=== PATIENT | female | born 1990 | race Caucasian/White ===

== ENCOUNTER → 2020-08-17 09:16 | Outpatient (BNVA) | payer BC, SELFPAY | PROVIDERS: Family Provider Family Medicine; PCP Family Medicine; Referring Provider Family Medicine; Visit Provider Podiatrist Foot & Ankle Surgery | DX: M79.671 Pain in right foot (principal) | CPT/HCPCS: 73630 ==

== ENCOUNTER → 2021-03-10 14:39 | Outpatient (BNVA) | payer BC, SELFPAY | PROVIDERS: Family Provider Family Medicine; PCP Family Medicine; Visit Provider Nurse Practitioner Women's Health | DX: R63.5 Abnormal weight gain (principal) | CPT/HCPCS: 84439; 84443 ==

== ENCOUNTER 2021-11-24 11:15 | Outpatient (CLI) | payer BC, SELFPAY ==
--- NOTE | 2021-11-24 11:50 | ECG_ITS ---
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 Measurements Intervals [place] Rate: 84 P: 56 SD: 159 QRS: -8 QRSD: 94 T: 35 QT: 384 QTc: 456 Interpretive Statements SINUS RHYTHM POSSIBLE LEFT VENTRICULAR HYPERTROPHY [VOLTAGE CRITERIA PLUS LAE OR QRS WIDENING] NONSPECIFIC T-WAVE ABNORMALITY No previous ECG available for comparison Electronically Signed On 11-24-2021 13:57:16 CDT by Estella Yepez M.D. [id number] f
== END 2021-11-24 11:16 | disposition home or self-care (01) ==
LOC: RT 11:16
PROVIDERS: PCP Family Medicine; Visit Provider Nurse Practitioner Family
DX: Z01.818 Encounter for other preprocedural examination (principal)
CPT/HCPCS: 93005

== ENCOUNTER 2022-02-08 14:21 | Outpatient (CLI) | payer BC, SELFPAY ==
--- NOTE | 2022-02-08 14:15 | USCV_ITS ---
Geraldine Negro Age: 31 Gender: F : 1990 Exam Date: 02/08/2022 14:57 Ordering Phys: Estella Yepez MD ([email or web address]) Technologist: Kurt López [place] [facility] [place] Indication: sugical clearence BP: 138 / 80 HR: 84 Rhythm: Sinus Technical Quality: Adequate MEASUREMENTS (Male / Female) Normal Values 2D ECHO LV Diastolic Diameter PLAX 4.0 cm 4.2 - 5.9 / 3.9 - 5.3 cm LV Systolic Diameter PLAX 2.8 cm IVS Diastolic Thickness 0.7 cm 0.6 - 1.0 / 0.6 - 0.9 cm IVS Systolic Thickness 1.1 cm LVPW Diastolic Thickness 1.0 cm 0.6 - 1.0 / 0.6 - 0.9 cm LVPW Systolic Thickness 1.6 cm LVOT Diameter 2.0 cm LV Ejection Fraction 2D Teich 59.1 % LV Ejection Fraction MOD 2C 68.4 % LV Ejection Fraction 2C AL 70.8 % LA Diameter 3.1 cm LA Width 2.5 cm LA Height 4.2 cm RA Width 3.2 cm RA Height 3.7 cm Aorta at Sinotubular Diameter 2.1 cm IVC Diameter 1.3 cm M-MODE Aortic Annulus Diameter 2.5 cm LA Ao Ratio MM 1.3 MV E Point Septal Separation 0.9 cm DOPPLER AV Peak Velocity 151.7 cm/s LVOT Peak Velocity 102.0 cm/s AV Area Cont Eq vti 1.9 cm squared AV Area Cont Eq pk 2.1 cm squared MV Peak Velocity 104.0 cm/s MV Area PHT 5.5 cm squared Mitral E to A Ratio 1.1 MV E' Velocity 45.0 cm/s Mitral E to MV E' Ratio 4.3 Mitral E to LV E' Lateral Ratio 3.5 Mitral E to LV E' Septal Ratio 5.6 TR Peak Velocity 226.6 cm/s TR Peak Gradient 20.5 mmHg TR Mean Velocity 169.9 cm/s TR Mean Gradient 12.6 mmHg TR Velocity Time Integral 56.0 cm Right Atrial Pressure 3.0 mmHg Pulmonary Artery Systolic Pressu 23.5 mmHg PV Peak Velocity 110.0 cm/s RV Acceleration Time 0.1 s RV Ejection Time 0.3 s RV AcT/ET 0.5 FINDINGS Left Ventricle Normal left ventricular size, systolic function and wall thickness, with no regional wall motion abnormalities. Left ventricular ejection fraction is estimated at 70 %. Normal diastolic function. Right Ventricle Normal right ventricular size and systolic function. Right ventricular systolic pressure 21 mmHg. Right Atrium Normal right atrial size. Left Atrium Normal left atrial size. Mitral Valve Structurally normal mitral valve. No mitral valve stenosis. Trace mitral valve regurgitation. Aortic Valve Probably trileaflet aortic valve. No aortic valve stenosis. No aortic valve regurgitation. Tricuspid Valve Structurally normal tricuspid valve. Mild tricuspid valve regurgitation. Pulmonic Valve Pulmonic valve not well visualized. No pulmonary valve stenosis. No significant pulmonary valve regurgitation. Pericardium No pericardial effusion. Aorta Normal size aortic root and proximal ascending aorta. IVC Normal IVC dimension with >50% respiratory change of the inferior vena cava. CONCLUSIONS 1. Normal left ventricular size, systolic function and wall thickness, with no regional wall motion abnormalities. Left ventricular ejection fraction is estimated at 70 %. Normal diastolic function. 2. Normal right ventricular size and systolic function. 3. Mild tricuspid valve regurgitation. 4. Normal pulmonary artery pressure. 5. No prior similar studies to compare. Estella Yepez MD (Electronically Signed) Final Date: 12 February 2022 16:22 S
== END 2022-02-08 14:22 | disposition home or self-care (01) ==
PROVIDERS: PCP Nurse Practitioner Family; Visit Provider Internal Medicine Cardiovascular Disease
DX: Z01.810 Encounter for preprocedural cardiovascular examination (principal); I10 Essential (primary) hypertension; R94.31 Abnormal electrocardiogram [ECG] [EKG]
CPT/HCPCS: 93306

== ENCOUNTER 2023-05-15 12:29 | Emergency (ER) | payer BC, SELFPAY ==
[2023-05-15 12:35] VITALS: BP 117/82; PULSE 93; RESP 16; TEMP 36.7; O2SAT 100; BMI 22.3
--- NOTE | 2023-05-15 13:01 | CT_ITS ---
WS: [id number] CT ABDOMEN PELVIS TECHNIQUE: Contrast-enhanced CT of the abdomen and pelvis with coronal and sagittal reformatted image s. CLINICAL INFORMATION: abd pain COMPARISON: None. DLP: 348.[address] scans at [facility] use at least one of these dose optimization techniques: automated e xposure control; mA and/or kV adjustment per patient size (includes targeted exams where dose is matc hed to clinical indication); or iterative reconstruction. FINDINGS: Lung bases are well aerated. Diffuse fatty infiltration of the liver. Hepatomegaly. Normal gallbladder. Small fat-containing umbilical hernia. Normal spleen. Gastric sleeve procedure. Prior hy sterectomy. Normal pancreatic parenchymal enhancement. Normal portal vein and splenic vein. Normal ca liber abdominal aorta. Celiac and SMA are patent. Urine distended bladder. Appendix difficult to visualize but no evidence of acute appendicitis. Normal renal parenchymal enhan cement. No hydronephrosis. Fluid distended loops of small bowel in the lower abdomen and pelvis. Dens e sigmoid constipation. Suspected posterior projecting hemorrhagic RIGHT ovarian cyst with fluid abou t the RIGHT adnexa. Suspected cyst measures 2.7 x 2.8 cm. No other acute findings. IMPRESSION: 1. Prior hysterectomy. 2. Appendix is not well visualized but no evidence of acute appendicitis. 3. Moderate dense sigmoid constipation with mild fluid distention of the small bowel. 4. Suspected posterior projecting RIGHT ovarian hemorrhagic cyst measuring 2.7 x 2.8 cm. This can be followed up with ultrasound. 5. Small amount of free fluid in the pelvis and about the RIGHT ovary. 6. No hydronephrosis in either kidney. 7. No other suspicious findings.
[2023-05-15 13:02] LABS: Basophils # 0.1 10^3/uL (0.0-0.1); Basophils % 0.8 %; Eosinophils % 0.4 %; Hematocrit 45.8 % (36-47); Lymphocytes # 1.4 10^3/uL (0.8-4.8); Lymphocytes % 17.2 %; Mean Corpuscular HGB Conc 34.9 g/dL (30-55); Mean Corpuscular Hemoglobin 31.4 pg (27-33); Mean Platelet Volume 11.9 fL (7.4-10.4); Monocytes # 0.5 10^3/uL (0.2-0.9); Monocytes % 6.2 %; Neutrophils # 5.93 10^3/uL (1.8-7.7); Neutrophils % 75.1 %; Nucleated Red Blood Cells % 0 %; Platelet Count 195 10^3/cmm (157-399); Red Blood Count 5.09 10^6/uL (3.85-5.65); Red Cell Distribution Width 12.5 % (12.1-15.1); White Blood Count 7.89 10^3/uL (3.29-11.43)
[2023-05-15 13:11] LABS: HCG, Serum Qual Negative (Negative)
[2023-05-15] MEDS: iohexol 350 mg/mL 500 mL Btl (per mL) IV (13:11)
[2023-05-15 13:16] LABS: Alanine Aminotransferase 12 U/L (0-33); Albumin Level 4.9 g/dL (3.5-5.2); Alkaline Phosphatase 77 U/L (35-105); Anion Gap 14.9 (5-19); Aspartate Amino Transferase 16 U/L (0-32); Blood Urea Nitrogen 10 mg/dL (6-20); Calcium 10.1 mg/dL (8.5-10.5); Carbon Dioxide 27 mmol/L (22-29); Chloride 97 mmol/L (98-107); Globulin 3.5 g/dL (1.3-4.6); Glomerular Filtration Rate 115.1 mL/min (90-130); Glucose 97 mg/dL (65-115); Lipase 35 U/L (13-60); Osmolality Calculated 279 mOsm/kg (285-295); Potassium 3.9 mmol/L (3.5-5.1); Sodium 135 mmol/L (136-145); Total Bilirubin 0.8 mg/dL (0.15-1.2); Total Protein 8.4 g/dL (6.6-8.7)
[2023-05-15 13:20] VITALS: RESP 17
[2023-05-15] MEDS: morphine 4 mg/mL SDV 1 mL IVP (13:20)
[2023-05-15] MEDS: ondansetron 2 mg/ML SDV 2 mL 4 MG IVP (13:20)
--- NOTE | 2023-05-15 13:32 | PC.PHAR ---
pt states she takes care of her own medications-pt states she finished the fluconazole 150mg every 3 days for 2 doses filled on 04/29/23 6d/s-
--- NOTE | 2023-05-15 13:42 | ED_ITS ---
HPI - Abdominal Pain 2 General: Chief Complaint: Abdominal Pain Stated Complaint: right lower abd pain Time Seen by Provider: 05/15/23 12:39 Source: patient Mode of arrival: ambulatory Limitations: no limitations History of Present Illness: 32-year-old female who states she has schmid d right lower quadrant pain over the last 2 days states pain is worsening pain rates it a 7 out of 10. States that it is in her right lower quadrant she is resting comfortably here she denies any worsening proving factors no vomiting diarrhea denies any dysuria she has had a hysterectomy. Associated Symptoms: Denies chills, diarrhea, dysuria, fever(s), nausea and vomiting Review of Systems 2 Const: Denies: fever(s), chills, body aches or change in appetite ENMT: Denies: throat pain or dental pain Card: Denies: chest pain Resp: Denies: dyspnea GI: Reports: abdominal pain; Denies: nausea, vomiting or diarrhea : Denies: dysuria Musc: Denies: neck pain or back pain Skin/Breast: Denies: rash Neuro: Denies: headache(s) PFSH ED 2 PFSH: Medical History Obesity Anxiety and depression Hypertension No pertinent past medical history neghx:dm,thyroid,dvt/pe PCP: [facility] History H/O gastric sleeve (~2022) Performed by Dr. Parker in [place] H/O oral surgery dental work at age 3 H/O: hysterectomy (~11/2018) MUSA performed by Dr. Jackson at [facility] on 12/10/2018. Due to fibroids. Family History Mother Hypertension Diabetes Breast cancer, Onset Age: 50 Father Hypertension Hyperlipidemia Grandmother Diabetes maternal Family/Other Ovarian cancer maternal aunt Social History Smoking and tobacco/nicotine status: never used tobacco/nicotine Substance/Drug Use: never Physical Exam 2 Const: COMMON NORMALS: no acute distress, patient oriented x3 and healthy appearing HENMT: COMMON NORMALS: normocephalic and atraumatic HEAD & SCALP: n ormocephalic and atraumatic Eye: COMMON NORMALS: conjunctivae normal CONJUNCTIVA: Yes conjunctivae normal Neck/C-Spine: COMMON NORMALS: full ROM and supple Chest: COMMONS NORMALS: normal inspection of the chest Resp: COMMON NORMALS: normal respiratory effort Cardio: COMMON NORMALS: regular rate, regular rhythm and No murmurs present (Cardio) RATE: regular rate RHYTHM: regular rhythm GI: COMMON NORMALS: Normal to inspection, nondistended, normoactive bowel sounds present, Soft to palpation and no masses PALPATION: Yes Soft to palpation and Yes Tenderness to palpation present (GI) Details: RLQ Extremity: COMMON NORMALS: normal to inspection and full ROM Neuro: COMMON NORMALS: patient oriented x3, moves all extremities and no focal motor deficits Psych: COMMON NORMALS: mental status grossly normal, Normal thought process present and cooperative THOUGHT PROCESS: Normal thought process present Skin: COMMON NORMALS: no rashes or lesions noted and no wounds GENERAL SKIN EXAM: no rashes or lesions noted Course 2 Vital Signs: Vital signs: Vital Signs Temperature 98.0 F 05/15/23 12:35 Pulse Rate 93 05/15/23 12:35 Respiratory Rate 17 05/15/23 13:20 Blood Pressure 117/82 05/15/23 12:35 Pulse Oximetry 100 05/15/23 12:35 Oxygen Delivery Me thod Room Air 05/15/23 12:35 MDM - Abdominal Pain Medical Decision Making Patient presents here with abdominal pain imaging blood work here is all normal patient feels improved she still has some slight pain she has no signs of surgical abdomen we will place her on pain meds along with nausea medicine she is to follow-up with PCP in 3 to 5 days and return if worsening she understands agrees to plan. Medical Records I reviewed the patient's medical records. Lab Data I reviewed the patient's lab results. 05/15/23 12:53 05/15/23 12:53 Labs/Radiology: Laboratory Results WBC 7.89 10^3/uL (3.29-11.43) 05/15/23 12:53 RBC 5.09 10^6/uL (3.85-5.65) 05/15/23 12:53 Hgb 16.00 g/dL (11.27-16.99) 05/15/23 12:53 Hct 45.8 % (36-47) 05/15/23 12:53 MCV 90.0 fl (85-98) 05/15/23 12:53 MCH 31.4 pg (27-33) 05/15/23 12:53 MCHC 34.9 g/dL (30-55) 05/15/23 12:53 RDW 12.5 % (12.1-15.1) 05/15/23 12:53 Plt Count 195 10^3/cmm (157-399) 05/15/23 12:53 MPV 11.9 fL (7.4-10.4) H 05/15/23 12:53 Neut % (Auto) 75.1 % 05/15/23 12:53 Lymph % (Auto) 17.2 % 05/15/23 12:53 [place] % (Auto) 6.2 % 05/15/23 12:53 Eos % (Auto) 0.4 % 05/15/23 12:53 Baso % (Auto) 0.8 % 05/15/23 12:53 Neut # (Auto) 5.93 10^3/uL (1.8-7.7) 05/15/23 12:53 Lymph # (Auto) 1.4 10^3/uL (0.8-4.8) 05/15/23 12:53 [place] # (Auto) 0.5 10^3/uL (0.2-0.9) 05/15/23 12:53 Eos # (Auto) 0.0 10^3/uL (0.0-0.8) 05/15/23 12:53 Baso # (Auto) 0.1 10^3/uL (0.0-0.1) 05/15/23 12:53 Nucleated RBC % (auto) 0 % 05/15/23 12:53 Nucleated RBCs # 0.0 /100WBC 05/15/23 12:53 Sodium 135 mmol/L (136-145) L 05/15/23 12:53 Potassium 3.9 mmol/L (3.5-5.1) 05/15/23 12:53 Chloride 97 mmol/L (98-107) L 05/15/23 12:53 Carbon Dioxide 27 mmol/L (22-29) 05/15/23 12:53 Anion Gap 14.9 (5-19) 05/15/23 12:53 BUN 10 mg/dL (6-20) 05/15/23 12:53 Creatinine 0.6 mg/dL (0.5-0.9) 05/15/23 12:53 GFR Calculation 115.1 mL/min (90-130) 05/15/23 12:53 Glucose 97 mg/dL (65-115) 05/15/23 12:53 Calculated Osmolality 279 mOsm/kg (285-295) L 05/15/23 12:53 Calcium 10.1 mg/dL (8.5-10.5) 05/15/23 12:53 Total Bilirubin 0.8 mg/dL (0.15-1.2) 05/15/23 12:53 AST 16 U/L (0-32) 05/15/23 12:53 ALT 12 U/L (0-33) 05/15/23 12:53 Alkaline Phosphatase 77 U/L (35-105) 05/15/23 12:53 Total Protein 8.4 g/dL (6.6-8.7) 05/15/23 12:53 Albumin 4.9 g/dL (3.5-5.2) 05/15/23 12:53 Globulin 3.5 g/dL (1.3-4.6) 05/15/23 12:53 Lipase 35 U/L (13-60) 05/15/23 12:53 HCG, Qual Negative (Negative) 05/15/23 12:53 Urine Color Yellow (Yellow) 05/15/23 14:03 Urine Appearance Clear (CLEAR) 05/15/23 14:03 Urine pH 9 (5-7) H 05/15/23 14:03 Ur Specific [place] 1.010 (1.005-1.030) 05/15/23 14:03 Urine Protein Neg (Negative) 05/15/23 14:03 Urine Glucose (UA) Norm (Normal) 05/15/23 14:03 Urine Ketones Negative (Negative) 05/15/23 14:03 Urine Blood Neg (Negative) 05/15/23 14:03 Urine Nitrate Negative (Negative) 05/15/23 14:03 Urine Bilirubin Neg (Negative) 05/15/23 14:03 Prot Sulfosalicylic Acd Negative (Negative) 05/15/23 14:03 Urine Urobilinogen Neg mg/dL (Negative) 05/15/23 14:03 Ur Leukocyte Esterase Negative (Negative) 05/15/23 14:03 All radiology interpretation(s) finalized by discharge Discharge Plan Discharge Patient Disposition: Home Clinical Impression: Abdominal pain Qualifiers: Abdominal location: generalized Qualified Code(s): R10.84 - Generalized abdominal pain Condition: Stable Prescriptions: New hydrocodone-acetaminophen 5-325 mg tablet 1 tab PO Q6H PRN (Reason: pain) Qty: 14 0RF ondansetron 4 mg tablet,disintegrating 4 mg PO Q6H PRN (Reason: nausea and vomiting) Qty: 14 0RF No Action hydrochlorothiazide 25 mg tablet 25 mg PO QAM lisinopril 10 mg tablet 10 mg PO QAM escitalopram oxalate [Lexapro] 10 mg tablet 10 mg PO BEDTIME dextroamphetamine-amphetamine 7.5 mg tablet 7.5 mg PO BID bupropion HCl 150 mg tablet sustained-release 12 hr 150 mg PO QAM biotin 800 mcg Tablet 800 mcg PO DAILY pantoprazole 40 mg tablet,delayed release (DR/EC) 40 mg PO DAILY PRN (Reason: Heartburn) Bariatric Multivitamins 45 mg iron- 800 mcg-120 mcg Capsule 1 cap PO DAILY progesterone micronized 200 mg capsule 200 mg PO BEDTIME estradiol 0.5 mg tablet 0.5 mg PO QAM Discharge Orders: Discharge ED (Routine); Ordered 05/15/23 Ordered By: Elvis Wright Referrals: Karishma Rodarte FNP [Primary Care Provider] - 1-3 days Discharge Diet: Advance as tolerated Discharge Activity: Resume usual activity Patient Instructions: Abdominal Pain (ED), Opioid Safety Coding Level of Care Code ED Machine Driller for Amy Velasquez
[2023-05-15 14:00] VITALS: BP 120/80; PULSE 77; O2SAT 100
[2023-05-15 14:09] LABS: Add Urine Microscopic? NO; Charge for UA Resulting for Rev
[2023-05-15 14:16] LABS: Bilirubin Urine Neg (Negative); Blood Urine Neg (Negative); Glucose Urine UA Norm (Normal); Ketones Urine Negative (Negative); Leukocyte Esterase Urine Negative (Negative); Nitrate Urine Negative (Negative); Protein Urine Neg (Negative); Sulfosalicylic Acid Urine Negative (Negative); Urine Appearance Clear (CLEAR); Urine Color Yellow (Yellow); Urobilinogen Urine Neg (Negative); pH Urine 9 (5-7)
[2023-05-15 15:00] VITALS: BP 118/78; PULSE 78; O2SAT 99
== END 2023-05-15 15:30 | disposition home or self-care (01) ==
PROVIDERS: Emergency Provider Emergency Medicine; PCP Nurse Practitioner Family
DX: R10.84 Generalized abdominal pain (principal); I10 Essential (primary) hypertension
CPT/HCPCS: 74177; 80053; 81003; 83690; 84703; 85025; 96374; 96375; 99285; J2270; J2405; Q9967

== ENCOUNTER → 2023-06-24 12:36 | Outpatient (BNVA) | payer BC, SELFPAY | PROVIDERS: PCP Nurse Practitioner Family; Visit Provider Nurse Practitioner Women's Health | DX: N83.201 Unspecified ovarian cyst, right side (principal) | CPT/HCPCS: 76830 ==

== ENCOUNTER 2025-01-25 21:23 | Emergency (ER) | payer BC, SELFPAY ==
[2025-01-25 21:27] VITALS: BP 132/83; PULSE 80; RESP 14; TEMP 36.8; O2SAT 99
--- OUTSIDE RECORDS SUMMARY | 2025-01-25 21:31 | XMS_ITS | Data Portability ---
Author Organization [place] [facility], [facility] Address [address] [address] Care Team Providers Care Bowling Alley Attendant Name Role Phone KARISHMA ALCANTARA Primary Care Provider Unavailabl e Assessment Encounter Date Assessment Date Assessment LastModified by Organization Details LastModified Time 11/11/2024 11/11/2024 Patient here today because she has had a lot of rectal pain and is concerned she has a hemorrhoid. She reports it is painful. She has been using OTC cream but it is still there. Not available 11/25/2024 13:16:35 12/29/2024 12/29/2024 Her hemorrhoids were improving but then she got constipated again and had to go to the ER to have it lanced. She had a UTI last week and was seen at the walk-in clinic. They gave her Macrobid but then on Saturday went back again because the pressure was there again. Not available 12/29/2024 13:22:44 Plan of Treatment Reminders Order Date Submit Date Provider Last Modified By Organization Details Last Modified Time Details Appointments ULTRASO UND 2024 10:15A M ULTRASOUND Not available Not available Not available Lab culture , urine 2024 025 [facility], [address] [facility] [address], [address] [place], [address], 12/29/2024 09:02:31 urinaly sis, dipstic k 2024 025 [email or web address] [facility] [address] [place], [address], 12/26/2024 18:33:17 unliste d lab - suredarena b(R) advance d vaginit is plus, tma 2024 025 [facility], [address] [place] [address], [address], [place], [address], 12/29/2024 09:02:31 urinaly sis, dipstic k 2024 025 [facility] ([facility]), [address] [place], [address], 12/23/2024 09:21:06 culture , urine 2024 025 [employer] [facility], [address] [place] [address], [address], [place], [address], 12/25/2024 00:56:54 CMP, serum or plasma 2024 025 [facility], [address] [facility], [facility] 1, [place], [address], 11/11/2024 16:52:02 CBC 2024 025 [facility], [address] [facility], [facility] 1, [place], [address], 11/11/2024 16:04:20 Referral pelvic floor therapy referra l [email or web address] [place] [address] Physical Therapy, [address] [place] [address], [address], [place], [address], 01/20/2025 15:26:30 Procedures None recorde d. Surgeries None recorde d. Imaging US, pelvis 2024 025 [email or web address] [facility], [address] [place] [address] [place], [address], 12/30/2024 09:36:18 Medication Orders alprazo paez 0.25 mg tablet 2024 025 [email or web address] [facility], [address], [place], [address], 01/21/2025 16:34:42 nitrofu rantoin monohyd rate/ma crocrys tals 100 mg capsule [address], [address], 01/04/2025 05:01:20 flucona zole 150 mg tablet [address], [address], 12/31/2024 05:01:21 Nurtec ODT 75 mg disinte grating tablet [address] [facility], [address] [place] [address], [address], 01/21/2025 16:17:36 hydroco rtisone 2.5 % topical cream with perinea l applica tor [address], [address], 01/21/2025 16:17:40 fluoxet ine 20 mg capsule [address], [address], 11/11/2024 18:49:13 Patient TargetsNo targets recorded. Patient Instructions Encounter Date Encounter Id Patient Instructions Last Modified By Organization Details Last Modified Time 11/11/2024 [id number] Call or return for questions or concerns. Not available 11/11/2024 15:16:26 12/29/2024 [id number] Call or return for questions or concerns. Not available 12/29/2024 13:33:48 Reason for Referral Pelvic Floor Therapy Referra l for Pelvic floor dysfunction Referring Physician: Karishma Alcantara, Family Medicine, Encounter Date: 12/29/2024 Results Created Date Observation Date Name Description Value Unit Range Abnormal Flag Note LastModifiedBy Organization Detail LastModifiedTime 12/30/1912/29/2024 SURES WAB(R ) ADVAN JULIO VAGIN ITIS PLUS, TMA sureswab(R) adv bacterial vaginosis (bv), tma NEGATI VE negati ve normal Not Available [address], [address], 12/29/2024 09:02:31 12/30/1912/29/2024 SURES WAB(R ) ADVAN JULIO VAGIN ITIS PLUS, TMA sugar species TNP TEST NOT PERFO RMED After sever al attem pts, we canno t obtai n a valid resul t. Pleas e submi t a new sampl e for testi ng. Not Available [address], [address], 12/29/2024 09:02:31 12/30/1912/29/2024 SURES WAB(R ) ADVAN JULIO VAGIN ITIS PLUS, TMA trichomonas vaginalis (TV), tma TNP TEST NOT PERFO RMED After sever al attem pts, we canno t obtai n a valid resul t. Pleas e submi t a new sampl e for testi ng. Not Available [place] [address] [place], [address], 12/29/2024 09:02:31 12/30/1912/29/2024 SURES WAB(R ) ADVAN JULIO VAGIN ITIS PLUS, TMA chlamydia trachomatis RNA, tma, urogenital NOT DETECT ED not detect ed normal Not Available [address] [place], [address], 12/29/2024 09:02:31 12/30/1912/29/2024 SURES DULCE(R ) ADVAN JULIO VAGIN ITIS PLUS, TMA neisseria gonorrhoeae RNA, tma, urogenital NOT DETECT ED not detect ed normal For addit ional infor kim haynes refer to https ://ed ucati on.qu estdi [employer]. com/f aq/FA Q154 (This link is being provi ded for infor davian girmaldo/ tonya matias purpo ses only. ) Not Available [employer] [facility] [address], [place], [address], 12/29/2024 09:02:31 12/30/1912/29/2024 CULTU RE, URINE , ROUTI NE culture, urine, routine SEE NOTE CULTU RE, URINE , ROUTI NE Micro Numbe r: [id number] Test Statu s: Final Speci men Sourc e: Not given Speci men Quali ty: Adequ ate Resul t: No Growt h Comme nt: No colle ction date was provi ded. The speci men is gener ally defin ed as stabl e up to 48 hours . The resul t(s) need( s) to be inter prete d cauti ously . Clini copat holog ic corre latio n is requi red. Repea t testi ng is recom amber d as clini jerri indic ated. [facility]i ce is avail able with quest ions or comme nts based on your area of inter est: [phone] PONCHO T ([phone]) NO COLLE CTION DATE RECEI GEORGI. WE HAVE USED THE DATE THE SPECI MEN WAS RECEI GEORGI BY THIS LABOR ATORY THE COLLE CTION DATE. IF THIS IS INCOR RECT, PLEAS E CONTA CT CLIEN T SERVI SERGIO. PHONE NUMBE R: [phone] Not Available [facility] [address] [place], [address], 12/29/2024 09:02:31 11/12/1911/11/2024 CBC WBC 4.8 x10 4.0-10 .5 Not Available [facility] [address], [place], [address], 11/11/2024 16:04:20 11/12/19 25 11/11/2024 CBC RBC 4.23 x10 3.50-5 .50 Not Available [facility] [address], [place], [address], 11/11/2024 16:04:20 11/12/19 25 11/11/2024 CBC HGB 13.4 g/dL 12.0-1 6.0 Not Available [facility] [address], [place], [address], 11/11/2024 16:04:20 11/12/19 25 11/11/2024 CBC HCT 40.2 % 37.0-4 7.0 Not Available [facility] [address], [place], [address], 11/11/2024 16:04:20 11/12/19 25 11/11/2024 CBC MCV 95.0 fL 80.0-9 9.9 Not Available [facility] [address], [place], [address], 11/11/2024 16:04:20 11/12/19 25 11/11/2024 CBC MCH 31.7 pg 27.0-3 2.0 Not Available [facility] [address] [facility] [address], [place], [address], 11/11/2024 16:04:20 11/12/19 25 11/11/2024 CBC MCHC 33.3 g/dL 32.0-3 6.0 Not Available [facility] [address], [place], [address], 11/11/2024 16:04:20 11/12/19 25 11/11/2024 CBC RDW 13.4 % 11.5-1 4.5 Not Available [facility] [address] [facility] 1, [place], [address], 11/11/2024 16:04:20 11/12/19 25 11/11/2024 CBC plt 217.7 x10 140.0- 451.0 Not Available [facility] [address] [facility] 1, [place], [address], 11/11/2024 16:04:20 11/12/19 25 11/11/2024 CBC lymphocytes % 37.7 % 20.0-5 0.0 Not Available [facility] [address] [place] [address] [facility] 1, [place], [address], 11/11/2024 16:04:20 11/12/19 25 11/11/2024 CBC granulcytes % 53.6 % 30.0-7 0.0 Not Available [facility] [address] [facility] 1, [place], [address], 11/11/2024 16:04:20 11/12/19 25 11/11/2024 CBC monocytes % 7.8 % 2.0-16 .0 Not Available [facility] [address] [facility] 1, [place], [address], 11/11/2024 16:04:20 11/12/19 25 11/11/2024 CBC granulcytes# 2.6 x10 Not Jocelyne ilable [facility] [address] [facility] 1, [place], [address], 11/11/2024 16:04:20 11/12/19 25 11/11/2024 CBC lymphocytes # 1.8 x10 Not Available [facility] [address] [facility] 1, [place], [address], 11/11/2024 16:04:20 11/12/19 25 11/11/2024 CBC monocytes # 0.4 x10 Not Avai lable [facility] [address] [facility] 1, [place], [address], 11/11/2024 16:04:20 11/12/19 25 11/11/2024 CMP (FEMA LE) glucose 92.0 mg/dL 60.0-9 9.0 Not Available [facility] [address] [facility], [place], [address], 11/11/2024 16:52:02 11/12/19 25 11/11/2024 CMP (FEMA LE) BUN (blood urea nitrogen) 8.0 mg/dL 10.0-2 6.0 low Not Available [facility] [address] [facility], [place], [address], 11/11/2024 16:52:02 11/12/19 25 11/11/2024 CMP (FEMA LE) creatinine (serum) 0.5 mg/dL 0.4-1. 5 Not Available [facility] [address] [facility], [place], [address], 11/11/2024 16:52:02 11/12/19 25 11/11/2024 CMP (FEMA LE) BUN/creatini ne ratio 16.00 ratio Not Available [facility] [address] [facility], [place], [address], 11/11/2024 16:52:02 11/12/19 25 11/11/2024 CMP (FEMA LE) eGFR calculated 149.2 Not Available [facility] [address] [facility] 1, [place], [address], 11/11/2024 16:52:02 11/12/19 25 11/11/2024 CMP (FEMA LE) total protein 7.2 g/dL 6.0-8. 5 Not Available [facility] [address] [facility] 1, [place], [address], 11/11/2024 16:52:02 11/12/19 25 11/11/2024 CMP (FEMA LE) total bilirubin 1.0 mg/dL 0.2-1. 3 Not Available [facility] [address] [facility] 1, [place], [address], 11/11/2024 16:52:02 11/12/19 25 11/11/2024 CMP (FEMA LE) albumin 4.5 g/dL 3.5-5. 5 Not Available [facility] [address] [facility] 1, [place], [address], 11/11/2024 16:52:02 11/12/19 25 11/11/2024 CMP (FEMA LE) globulin 2.7 calc Not Available [facility] [address] [facility] [facility] 1, [place], [address], 11/11/2024 16:52:02 11/12/19 25 11/11/2024 CMP (FEMA LE) AST (SGOT) 24.0 U/L 0.0-46 .0 Not Available [facility] [address] [facility], [place], [address], 11/11/2024 16:52:02 11/12/19 25 11/11/2024 CMP (FEMA LE) altv (SGPT) 13.0 U/L 13.0-6 9.0 normal Not Available [facility] [address] [facility] 1, [place], [address], 11/11/2024 16:52:02 11/12/19 25 11/11/2024 CMP (FEMA LE) A/G ratio 1.7 ratio Not Available [facility] [address] [facility] 1, [place], [address], 11/11/2024 16:52:02 11/12/19 25 11/11/2024 CMP (FEMA LE) ALP phos 40.0 U/L 30.0-1 40.0 normal Not Available [facility] [address] [facility] 1, [place], [address], 11/11/2024 16:52:02 11/12/19 25 11/11/2024 CMP (FEMA LE) calcium 9.4 mg/dL 8.4-10 .5 Not Available [facility] [address] [facility] 1, [place], [address], 11/11/2024 16:52:02 11/12/19 25 11/11/2024 CMP (FEMA LE) sodium 138.0 mmol/ L 136.0- 145.0 Not Available [facility] [address] [facility] 1, [place], [address], 11/11/2024 16:52:02 11/12/19 25 11/11/2024 CMP (FEMA LE) potassium 3.7 mmol/ L 3.5-5. 1 Not Available [facility] [address] [facility] 1, [place], [address], 11/11/2024 16:52:02 11/12/19 25 11/11/2024 CMP (FEMA LE) chloride 103.0 mmol/ L 98.0-1 10.0 normal Not Available [facility] [address] [facility] 1, [place], [address], 11/11/2024 16:52:02 11/12/19 25 11/11/2024 CMP (FEMA LE) C02 28.0 mmol/ L 22.0-3 1.0 Not Available [facility] [address] [facility] 1, [place], [address], 11/11/2024 16:52:02 11/12/19 25 11/11/2024 CMP (FEMA LE) anion gap 7.0 calc Not Available [facility] [address] [facility] 1, [place], [address], 11/11/2024 16:52:02 11/12/19 25 11/11/2024 CMP (FEMA LE) osmolality 283.3 calc Not Available [facility] [address] [facility] [address], [place], [address], 11/11/2024 16:52:02 12/24/19 25 12/24/2024 CULTU RE, URINE , ROUTI NE culture, urine, routine SEE NOTE CULTU RE, URINE , ROUTI NE Micro Numbe r: [id number] Test Statu s: Final Speci men Sourc e: Urine , clean catch Speci men Quali ty: Adequ ate Resul t: No Growt h Not Available [facility] [address] [place], [address], 12/25/2024 00:56:54 12/24/1912/23/2024 urina lysis , dipst ick Leukocytes Large Not Available [facility] ([facility]) [address] [place], [address], 12/23/2024 08:52:23 12/24/19 25 12/23/2024 urina lysis , dipst ick Nitrite positi ve Not Available [facility] ([facility]) [address] [place], [address], 12/23/2024 08:52:23 12/24/19 25 12/23/2024 urina lysis , dipst ick Urobilinogen 2 Not Available [facility] ([facility]) [address] [place], [address], 12/23/2024 08:52:23 12/24/1912/23/2024 urina lysis , dipst ick Protein 100 Not Available [facility] ([facility]) [address] [place], [address], 12/23/2024 08:52:23 12/24/1912/23/2024 urina lysis , dipst ick pH 5.0 Not Available [facility] ([facility]) [address] [place], [address], 12/23/2024 08:52:23 12/24/1912/23/2024 urina lysis , dipst ick Blood Non-He molyze d: Trace Not Available [facility] ([facility]) [address] [place], [address], 12/23/2024 08:52:23 12/24/1912/23/2024 urina lysis , dipst ick Specific [place] 1.015 Not Available [facility] ( [facility]) [address] [place], [address], 12/23/2024 08:52:23 12/24/1912/23/2024 urina lysis , dipst ick Ketone Small Not Available [facility] ([facility]) [address] [place], [address], 12/23/2024 08:52:23 12/24/1912/23/2024 urina lysis , dipst ick Bilirubin Small Not Available [facility] ([facility]) [address] [place], [address], 12/23/2024 08:52:23 12/24/1912/23/2024 urina lysis , dipst ick Glucose 100 Not Available [facility] ([facility]) [address] [place], [address], 12/23/2024 08:52:23 12/27/19 25 12/26/2024 urina lysis , dipst ick Leukocytes Negati ve Not Available [facility] ([facility]) [address] [place], [address], 12/26/2024 17:44:50 12/27/19 25 12/26/2024 urina lysis , dipst ick Nitrite negati ve Not Available [facility] ([facility]) [address] [place], [address], 12/26/2024 17:44:50 12/27/19 25 12/26/2024 urina lysis , dipst ick Urobilinogen .2 Not Available [facility] ([facility]) [address] [place], [address], 12/26/2024 17:44:50 12/27/19 25 12/26/2024 urina lysis , dipst ick Protein Negati ve Not Available [facility] ([facility]) [address] [place], [address], 12/26/2024 17:44:50 12/27/19 25 12/26/2024 urina lysis , dipst ick pH 8.0 Not Available [facility] ([facility]) [address] [place], [address], 12/26/2024 17:44:50 12/27/19 25 12/26/2024 urina lysis , dipst ick Blood Negati ve Not Available [facility] ([facility]) [address] [place], [address], 12/26/2024 17:44:50 12/27/19 25 12/26/2024 urina lysis , dipst ick Specific [place] 1.020 Not Available [facility] ( [facility]) [address] [place], [address], 12/26/2024 17:44:50 12/27/19 25 12/26/2024 urina lysis , dipst ick Ketone Negati ve Not Available [facility] ([facility]) [address] [place], [address], 12/26/2024 17:44:50 12/27/19 25 12/26/2024 urina lysis , dipst ick Bilirubin Negati ve Not Available [facility] ([facility]) [address] [place], [address], 12/26/2024 17:44:50 12/27/19 25 12/26/2024 urina lysis , dipst ick Glucose Negati ve Not Available [facility] ([facility]) [address] [place], [address], 12/26/2024 17:44:50 12/27/19 25 12/26/2024 urina lysis , dipst ick Appearance Clear Not Available [facility] ([facility]) [address] [place], [address], 12/26/2024 17:44:50 12/27/19 25 12/26/2024 urina lysis , dipst ick Color Yellow Not Available [facility] ([facility]) [address] [place], [address], 12/26/2024 17:44:50 Result Notes None recorded. Problems Name Problem SNOMED Code Status Onset Date Resolution Date Notes Provider Name and Address Organization Details Recorded Time Pre-eclampsia 841675981 Active 2022 UMA [place] [facility] [facility] 4 16:05:30 Anxiety disorder 199040259 Active 2022 [place] [facility] 4 16:05:00 Attention deficit hyperactivity disorder 987804543 Active 2022 UM[facility]ICK [facility] 4 16:05:06 Depressive disorder 53262020 Active 2022 UMADICK [facility] 4 16:05:17 History of bariatric surgical procedure 073908937 Active 2022 [facility] 4 16:05:22 Adult attention deficit hyperactivity disorder 048699159 Active 2022 UMADICK [facility] 4 16:04:54 Thyroid stimulating hormone level below reference range 914123949 Active 2024 Ahsan Resendiz MD [address] [place] [address], [address] [place] [address], L.L.C. 5 11:59:05 Problem Notes None recorded. Procedures Surgical History Date Name Laterality Status Provider Name and Address Organization Details Recorded Time laparoscopic sleeve gastrectomy completed ANDRE BANKS [facility] 02/10/2024 11:15:57 Hysterectomy completed UMA ALLEN [facility] 03/13/2023 10:32:05 Imaging Results None recorded. Procedure Notes None recorded. Medical Equipment None Reported. Allergies No known drug allergies Medications Name Sig Start Date Stop Date Status Note LastModified by Organization Details LastModified Time testoster one 5 mg/gm hrt heavy () APPLY 4 clicks (ONE GRAM) TOPICALL Y ONCE DAILY as directed 11/11 completed Not Available Not Available Not Available testoster one 7.5mg/gm top crm hrthvy () APPLY 4 clicks (ONE GRAM) TOPICALL Y ONCE DAILY DIRECTED 01/21 completed Not Available Not Available Not Available fluoxetin e 40 mg capsule take 1 capsule BY MOUTH EVERY DAY 11/11 completed Not Available Not Available Not Available dextroamp hetamine- amphetami ne 7.5 mg tablet TAKE 1 TABLET BY MOUTH TWICE DAILY *need TO see doctor* 12/09 completed dose change Not Available Not Available Not Available buspirone 5 mg tablet Take 1 tablet twice a day by oral route for 30 days. 10/30 completed dizzines s Not Available Not Available Not Available bupropion HCl SR 150 mg tablet,12 hr sustained -release TAKE 1 TABLET BY MOUTH EVERY DAY 01/21 completed Not Available Not Available Not Available fluconazo le 150 mg tablet Take 1 tablet every day by oral route for 1 day. 12/31 completed Not Available Not Available Not Available hydrochlo rothiazid e 50 mg tablet TAKE 1 TABLET BY MOUTH EVERY DAY 05/30 completed Not Available Not Available Not Available hydrocodo ne 5 mg-acetam inophen 325 mg tablet TAKE 1 TABLET BY MOUTH EVERY 6 HOURS NEEDED FOR PAIN 05/30 completed Not Available Not Available Not Available phenazopy ridine 200 mg tablet TAKE 1 TABLET BY MOUTH THREE TIMES DAILY FOR 2 DAYS 01/21 completed Not Available Not Available Not Available ondansetr on HCl 4 mg tablet TAKE 1 TABLET BY MOUTH EVERY 6 HOURS NEEDED 01/21 completed Not Available Not Available Not Available prednison e 20 mg tablet TAKE 1 TABLET BY MOUTH TWICE DAILY FOR 5 DAYS 08/21 completed Not Available Not Available Not Available dextroamp hetamine- amphetami ne 10 mg tablet Take 1 tablet twice a day by oral route. 01/26 completed dose change Not Available Not Available Not Available dextroamp hetamine- amphetami ne 12.5 mg tablet TAKE 1 TABLET BY MOUTH TWICE DAILY FOR 30 DAYS 2024 active Not Available Not Available Not Avai lable terconazo le 0.8 % vaginal cream INSERT 1 APPLICAT ORFUL VAGINALL Y EVERY DAY FOR 3 DAYS 02/09 completed Not Available Not Available Not Available sumatript an 50 mg tablet TAKE 1 TABLET EVERY DAY BY MOUTH NEEDED. 12/10 completed Nauesa Not Available Not Available Not Available metronida zole 500 mg tablet TAKE 1 TABLET BY MOUTH TWICE A DAY FOR 7 DAYS 11/13 completed Not Available Not Available Not Available phentermi ne 37.5 mg tablet TAKE 1 TABLET BY MOUTH EVERY DAY. YANNA FLORES SUPERVIS OTF LEE 08/21 completed Not Available Not Available Not Available ciproflox acin 500 mg tablet TAKE 1 TABLET BY MOUTH TWICE A DAY UNTIL GONE 02/09 completed Not Available Not Available Not Available sulfameth oxazole 800 mg-trimet hoprim 160 mg tablet TAKE 1 TABLET BY MOUTH TWICE A DAY 08/21 completed Not Available Not Available Not Available lamotrigi ne 25 mg tablet TAKE 1 TABLET BY MOUTH EVERY DAY FOR MOOD 01/21 completed Not Available Not Available Not Available ketorolac 10 mg tablet TAKE 1 TABLET BY MOUTH EVERY 8 HOURS NEEDED FOR PAIN 02/09 completed Not Available Not Available Not Available amoxicill in 875 mg tablet TAKE 1 TABLET BY MOUTH TWICE DAILY UNTIL GONE 10/30 completed Not Available Not Available Not Available alprazola m 0.25 mg tablet Take 1 tablet twice a day by oral route as needed. 2024 active Not Available Not Available Not Avai lable estradiol 1 mg tablet TAKE 1 TABLET BY MOUTH EVERY MORNING 02/09 completed Not Available Not Available Not Available Proctozon e-HC 2.5 % topical cream perineal applicato r apply a thin layer TO affected area two TO four times a DAY 01/21 completed Not Available Not Available Not Available hydrocodo ne 7.5 mg-acetam inophen 325 mg tablet TAKE 1 TABLET BY MOUTH EVERY 4 TO 6 HOURS NEEDED FOR PAIN MAX OF SIX TABLETS IN 24 HOURS 10/30 completed Not Available Not Available Not Available cephalexi n 500 mg capsule TAKE 1 CAPSULE BY MOUTH EVERY 12 HOURS FOR 7 DAYS 01/21 completed Not Available Not Available Not Available paroxetin e 20 mg tablet TAKE 1 TABLET BY MOUTH EVERY DAY 05/30 completed Not Available Not Available Not Available pantopraz ole 40 mg tablet,de layed release TAKE 1 TABLET BY MOUTH EVERY DAY 03/31 completed Not Available Not Available Not Available oseltamiv ir 75 mg capsule take 1 capsule BY MOUTH TWICE DAILY for 5 days 08/05 completed Not Available Not Available Not Available buspirone 10 mg tablet 08/21 completed Not Available Not Available Not Available lisinopri l 10 mg tablet TAKE 1 TABLET BY MOUTH EVERY DAY FOR BLOOD PRESSURE active Not Available Not Available No t Available promethaz ine 25 mg tablet TAKE 1 TABLET BY MOUTH EVERY 6 HOURS NEEDED FOR NAUSEA AND VOMITING 05/07 completed Not Available Not Available Not Available progester one micronize d 200 mg capsule TAKE 2 CAPSULES BY MOUTH AT BEDTIME active Not Available Not Available No t Available docusate sodium 100 mg capsule take 1 capsule BY MOUTH TWICE DAILY active Not Available Not Available No t Available lidocaine HCl 2 % mucosal solution apply TO affected area TWICE DAILY NEEDED FOR PAIN active Not Available Not Available No t Available buspirone 7.5 mg tablet Take 1 tablet twice a day by oral route. 08/21 completed Not Available Not Available Not Available hydroxyzi ne HCl 25 mg tablet TAKE 1 TABLET 3 TIMES A DAY BY ORAL ROUTE NEEDED FOR 30 DAYS, FOR PANIC. 03/31 completed Not Available Not Available Not Available hydrochlo rothiazid e 25 mg tablet TAKE 1 TABLET BY MOUTH EVERY DAY FOR 90 DAYS active Not Available Not Available No t Available estradiol 0.5 mg tablet TAKE 1 TABLET BY MOUTH EVERY MORNING 12/10 completed dose increase Not Available Not Available Not Available polyethyl griselda glycol 3350 17 gram/dose oral powder TAKE 17 GRAMS TWICE DAILY 01/21 completed Not Available Not Available Not Available Vitamin D2 1,250 mcg (50,000 unit) capsule take 1 capsule BY MOUTH ONCE a week active Not Available Not Available No t Available propranol ol 20 mg tablet TAKE 1 TABLET BY MOUTH TWICE DAILY NEEDED 09/09 completed Not Available Not Available Not Available ondansetr on 4 mg disintegr ating tablet TAKE 1 TABLET BY MOUTH EVERY 6 HOURS NEEDED FOR NAUSEA AND VOMITING 08/06 completed Not Available Not Available Not Available fluoxetin e 20 mg capsule take 1 capsule BY MOUTH EVERY DAY active Not Available Not Available No t Available sertralin e 50 mg tablet TAKE 1 TABLET BY MOUTH EVERY DAY 08/21 completed Not Available Not Available Not Available estradiol 0.1 mg/24 hr weekly transderm al patch APPLY 1 PATCH TOPICALL Y TO THE SKIN EVERY WEEK 08/21 completed Not Available Not Available Not Available amoxicill in 875 mg-potass ium clavulana te 125 mg tablet Take 1 tablet twice a day by oral route for 7 days, for infectio n. 09/02 completed Not Available Not Available Not Available oxycodone 5 mg tablet TAKE 1 TABLET BY MOUTH EVERY 8 HOURS NEEDED FOR PAIN FOR TWO DAYS 01/21 completed Not Available Not Available Not Available escitalop cara 10 mg tablet TAKE 1 TABLET BY MOUTH EVERY DAY 02/09 completed Not Available Not Available Not Available escitalop cara 20 mg tablet TAKE 1 TABLET BY MOUTH EVERY DAY 12/10 completed dose decrease d Not Available Not Available Not Available hydrocodo ne 7.5 mg-acetam inophen 325 mg/15 mL oral solution 08/21 completed Not Available Not Available Not Available nitrofura ntoin monohydra te/macroc rystals 100 mg capsule Take 1 capsule every 12 hours by oral route for 5 days. 01/04 completed Not Available Not Available Not Available hydrochlo rothiazid e daily 12/20 completed Recorded 03/14/20 22 10:17AM by PREM Hartman, Office Visit; Refill Quantity : 90; Tablet; Not Available Not Available Not Available buspirone two times daily, as needed 12/20 completed 99285; Recorded 07/11/19 23 8:46AM by Uma Allen CMT (Authori vickied through PREM Hartman), Refill Request; Refill Quantity : 180; Tablet; Not Available Not Available Not Available Adderall two times daily 12/20 completed Recorded 05/30/19 23 9:22AM by PREM Hartman, Office Visit; Refill Quantity : 0; Not Available Not Available Not Available Vyvanse 10 mg capsule TAKE 1 CAPSULE BY MOUTH EVERY DAY 08/05 completed Not Available Not Available Not Available Krystyna 0.05 mg/24 hr transderm al patch APPLY ONE PATCH TO SKIN twice weekly 08/06 completed Not Available Not Available Not Available [facility] [place] ODT 75 mg disintegr ating tablet TAKE 1 TABLET BY MOUTH NEEDED FOR migraine 01/21 completed Not Available Not Available Not Available Paxlovid 300 mg (150 mg x 2)-100 mg tablets in a dose pack TAKE 1 DOSE TWICE A DAY FOR 5 DAYS 11/13 completed Not Available Not Available Not Available Mounjaro 2.5 mg/0.5 mL subcutane ous pen injector INJECT 0.5ML SUBCUTAN EOUS EVERY WEEK 08/21 completed Not Available Not Available Not Available Vitals Date Recorded Body height Oxygen saturation Oxygen saturation in Arterial blood by Pulse oximetry Heart rate Respiratory rate Body mass index (BMI) Body weight Systolic And Diastolic Provider Name and Address Organization Details Last Updated DateTime 5 158.75 cm 95 % 95 % 100 /min 18 /min 21.2 kg/m2 84681.9 g 122/68 mm[Hg] UMA ALLEN [facility] 5 14:49:01 Date Recorded Body height Oxygen saturation Oxygen saturation in Arterial blood by Pulse oximetry Heart rate Body temperature Respiratory rate Body mass index (BMI) Body weight Systolic And Diastolic Provider Name and Address Organization Details Last Updated DateTime 5 158.75 cm 92 % 92 % 81 /min 98.1 [degF] 17 /min 21.7 kg/m2 52173.1 8 g 120/70 mm[Hg] HORTENCIA TAFOYA [facility] 5 09:02:01 Date Recorded Body height Body mass index (BMI) Body weight Body temperature Heart rate Oxygen saturation Oxygen saturation in Arterial blood by Pulse oximetry Systolic And Diastolic Provider Name and Address Organization Details Last Updated DateTime 5 158.75 cm 21.6 kg/m2 91693.0 8 g 98.3 [degF] 81 /min 97 % 97 % 126/72 mm[Hg] Mindy Land [facility] 5 17:53:59 Date Recorded Body height Body mass index (BMI) Body weight Body temperature Heart rate Oxygen saturation Oxygen saturation in Arterial blood by Pulse oximetry Respiratory rate Systolic And Diastolic Provider Name and Address Organization Details Last Updated DateTime 5 158.75 cm 21.2 kg/m2 32241.9 g 98.4 [degF] 80 /min 98 % 98 % 18 /min 120/65 mm[Hg] Patria Delong [facility] 5 13:17:58 Date Recorded Body height Body mass index (BMI) Body weight Oxygen saturation Oxygen saturation in Arterial blood by Pulse oximetry Heart rate Respiratory rate Body temperature Systolic And Diastolic Provider Name and Address Organization Details Last Updated DateTime 5 158.75 cm 21.8 kg/m2 84543.0 8 g 98 % 98 % 84 /min 18 /min 98.1 [degF] 118/68 mm[Hg] GADIEL YOUNG [facility] 5 16:18:12 Social History Question Answer Notes LastModified by OrganizExabeam ion Details LastModified Time Tobacco Smoking Status Never Smoker UMA ALEJANDRO eaton [facility] 03/13/2023 10:31:40 What Was The Date Of Your Most Recent Tobacco Screening? 12/26/2024 [email or web address] Information not available 12/26/2024 What Is Your Relationship Status? [email or web address] Information not available 03/13/2023 Sex: Unknown Functional Status Question Answer Note LastModified by Organizat ion Details LastModified Time Do you use any illicit or recreational drugs? No [email or web address] Information not available 03/13/2023 Do you or have you ever used any other forms of tobacco or nicotine? No [email or web address] Information not available 12/23/2024 What is your level of alcohol consumption? None [email or web address] Information not available 03/13/2023 Are you currently employed? Yes [email or web address] Information not available 03/13/2023 Are you able to walk independently without assistance or assistive devices? [email or web address] Information not available 04/13/2024 Are you able to care for yourself independently? Yes [email or web address] Information not available 03/13/2023 Do you or have you ever used any nicotine-free cigarettes, vape, or chewing tobacco? No [email or web address] Information not available 12/23/2024 Mental Status None recorded. Family History Relationship Description Onset Age of this Age Resolved Age Notes LastModified by Organization Details LastModified Time Mother Type 2 diabetes mellitus [email or web address] Not available 03/13 10:27:03 Mother Malignant neoplasm of breast dx age 55 [email or web address] Not available 03/13/2023 10:31:18 Father Essential hypertension [email or web address] Not available 10:30:55 Medical History Condition Response Depression Y Anxiety Disorder Y Hypertension Y Gynecological HistoryNo gynecological history recorded. Obstetrics History GPAL:G 0 P 0 0 0 0 Immunizations Vaccine Type Date Status Note Provider Nam e and Address Organization Details Recorded Time Influenza, split virus, trivalent, preservative 0 completed Not Available [employer] 05/30/2023 12:17:52 COVID-19, mRNA, LNP-S, PF, 100 mcg/0.5mL dose or 50 mcg/0.25mL dose 1 completed PREM PATINO [address] [place] [address], [phone], [facility] 12/20/2022 12:39:21 Past Encounters Encounter ID Performer Location Encounter Start Date Encounter Closed Date Diagnosis/Indication Diagnosis SNOMED-CT Code Diagnosis ICD10 Code Diagnosis IMO Codes Diagnosis Note [id number] PREM PATINO [facility] ([facility]) [address] [place] [phone] 5 08/21/2022 15:08:21 09/03/2022 11:15:05 Adult attention deficit hyperactivity disorder 041111518 F90.9 Will send scripts to Dr. Resendiz to sign. History of bariatric surgical procedure 997873680 Z98.84 Overall she is doing well following surgery. [id number] PREM PATINO [facility] ([facility]) [address] [place] [address] [id number] 5 12/20/2022 12:22:27 12/20/2022 13:00:51 Adult attention deficit hyperactivity disorder 772974723 F90.9 Will send scripts to Dr. Resendiz to sign. Anxiety disorder 3733550 06 F41.9 Mom has been causing her some stress here lately. [id number] PREM PATINO [facility] ([facility]) [address] [place] [address] [id number] 5 03/13/2023 10:03:35 03/13/2023 10:54:43 Adult attention deficit hyperactivity disorder 327285557 F90.9 Will send scripts. Vaginitis 67323090 N76.0 [id number] KARISHMA ALCANTARA [employer] [facility] ([facility]) [address] [place] [address] [id number] 5 05/30/2023 12:17:31 06/25/2023 06:32:52 Attention deficit hyperactivity disorder 429847015 F90.9 Hemorrhagi c cyst of ovary 359871808 N83.209 Followed with Rosa Elena Beavers. Ultrasound scheduled in a month or so. Additional ly she was placed on some estrogen. Depressive disorder 2264 9007 F32.A Increased her Lexapro to 20mg about 2 weeks ago, some improvemen t. Anxiety disorder 7115491 06 F41.9 Feels like anxiety is worsening. [id number] CHRIS MENAFORMERLY [facility] ([facility]) [address] [place] [address] [id number] 5 07/15/2023 08:29:36 07/15/2023 09:06:27 Fever 363250982 R50.9 Flu A positive.F rodolfo B negative. Influenza A virus present 5844063059 08 J09.X2 Influenza A positive today. Patient does qualify for Tamiflu and will start this medication today. Can take tylenol/ib uprofen as needed for pain. Recommend continuing Mucinex and Sudafed as needed. Encouraged to push fluids and quarantine until feeling better and fever free for 24 hours without the use of anti-pyret ics. If severe SOB or chest pain occurs, should go to ED. Patient verbalizes understand ing. [id number] KARISHMA ALCANTARA [employer] [facility] ([facility]) [address] [place] [address] [id number] 5 08/06/2023 12:49:28 08/06/2023 14:34:36 Headache 77365685 R51.9 She will keep a diary. 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 Morin refilled dextroamph etamine Amphetamin e. Anxiety disorder 8099060 06 F41.9 Feels like anxiety is worsening. Vaginitis 67108568 N76.0 Adult atte ntion deficit hyperactivity disorder 536446944 F90.9 Continue current medication s. Dysuria 22722946 R30.0 Mycoplasma species or Ureaplasma urealyticum 229478387 R89.5 Bacterial vaginosis 4197 87892 N76.0 Candidiasis of vagina 72 732243 B37.31 [id number] Ahsan Resendiz MD [facility] ([facility]) [address] [place], [place] [phone] 5 11/14/2023 16:04:27 11/14/2023 17:04:43 Attention deficit hyperactivity disorder 286872971 F90.9 Adult atte ntion deficit hyperactivity disorder 617691686 F90.9 Headache 60053506 R51.9 [id number] Ahsan Resendiz MD [facility] ([facility]) [address] [place] [address] [id number] 5 12/11/2023 15:20:57 12/11/2023 16:34:23 Adult attention deficit hyperactivity disorder 536320031 F90.9 Headache 10714866 R51.9 [id number] Ahsan Resendiz MD [facility] ([facility]) [address] [place], [place] [phone] 02/10/2024 10:54:09 02/10/2024 13:06:54 Adult attention deficit hyperactivity disorder 234418947 F90.9 Anxiety 88706232 F41.9 [id number] PREM GRANADOS [facility] ([facility]) [address] [place] [address] [id number] 5 03/31/2024 18:24:11 03/31/2024 18:46:30 Dysuria 60991193 R30.0 Acute urin nimesh tract infection 644820133 N39.0 UA results reviewed and discussed with pt. We will start antibiotic s. Pt will increase oral fluids and can use cranberry. Return to office with no improvemen t or any problems. Go to ER with severe worsening or severe problems.W e will obtain urine culture Vaginitis 48156058 N76.0 [id number] KARISHMA ALCANTARA [employer] [facility] ([facility]) [address] [place] [address] [id number] 5 04/13/2024 10:23:21 04/13/2024 11:51:23 Anxiety disorder 752629930 F41.9 Feels like anxiety is worsening. Attention deficit hyperactivity disorder 365548795 F90.[address] Resendiz. Vaginitis 16998963 N76.0 Recurrent urinary tract infection 279446541 N39.0 Finishes antibiotic s today. Bipolar disorder 4850103 4 F31.9 Up and down moods, fidgeting, racing thoughts, distractib ility [id number] Ahsan Resendiz MD [facility] ([facility]) [address] [place] [address] [id number] 5 05/07/2024 13:33:00 05/07/2024 14:59:23 Anxiety disorder 899520046 F41.9 Adult atte ntion deficit hyperactivity disorder 308467768 F90.9 [id number] PREM PATINO [facility] ([facility]) [address] [place] [address] [id number] 5 08/06/2024 09:34:34 08/06/2024 10:24:19 Dysuria 79175394 R30.0 37343 Fatigue 36246705 R53.82 [id number] History of bariatric surgical procedure 401334311 Z98.84 [id number] Appt the end of the month with Dr. Parker. Mood disorder 61238746 F 31.9 She is going to restart her prozac and possibly restart her lamictal. History of hysterectomy 113862259 Z90.710 [id number] Ahsan Resendiz MD [facility] ([facility]) [address] [place] [address] [id number] 5 08/12/2024 11:17:12 08/12/2024 12:32:48 Attention deficit hyperactivity disorder 323642535 F90.9 Anxiety disorder 0512148 06 F41.9 Fatigue 48504770 R53.[address] imulating hormone level below reference range 021168524 R79.89 8400732 Mixed anxi ety and depressive disorder 408779815 F41.9 [id number] ARNOLDO LOWE [facility] ([facility]) [address] [place] [address] [id number] 5 09/09/2024 13:09:16 09/09/2024 14:39:56 Dysuria 33551458 R30.0 50476 Fatigue 71073983 R53.82 [id number] Viral disease 99233581 B 34.9 61048 Increase po fluids. Rest. May use otc meds as needed for symptoms. Return to clinic with any new or worsening symptoms. Follow up with PCP in 1-2 weeks if no improvemen t in chronic fatigue symptoms. [id number] KARISHMA ALCANTARA [facility] ([facility]) [address] [place] [address] [id number] 5 11/11/2024 14:40:14 11/25/2024 14:45:41 Hemorrhoids 96749938 K64.8 [id number] Mixed anxi ety and depressive disorder 221876864 F41.8 Unintentio nal weight loss 419665751 R63.4 788849 Migraine 57590390 G43.90 9 19263 [id number] ARNOLDO LOWE [facility] ([facility]) [address] [place] [address] [id number] 5 12/23/2024 08:47:01 12/23/2024 09:21:49 Dysuria 32592882 R30.0 39607 Acute urin nimesh tract infection 224704096 N39.0 047241 Discussed to take antibiotic as prescribed until completedU rine culture ordered - will notify of any resultsEdu cated patient on increasing PO fluids of water, decreasing caffeine (coffee) and sugary drinks.Dis cussed importance of avoiding baths, scented soaps, douching, perfumes.M ay take OTC AZO for 1-2 days as box directs for burning sensation. Return to clinic if any changes, any worsening, any concernsPa tient verbalized understand ing of plan. [id number] JT GIBSON [facility] ([facility]) [address] [place] [address] [id number] 5 12/26/2024 17:42:46 12/28/2024 11:39:24 Dysuria 18550600 R30.0 [id number] Pt will take fluconazol e that was prescribed at her last visit.May stop the macrobid since urine dip today is normal and urine cx was negative.S elf vaginal swab collected. Will call pt with results. [id number] PREM PATINO [facility] ([facility]) [address] [place] [address] [id number] 5 12/29/2024 13:09:40 12/29/2024 13:53:29 Pelvic floor dysfunction 934650655 M62.89 [id number] Anxiety disorder 06 F41.9 Feels like anxiety is worsening. Struggling with her mom's health at this time. She needs a lot of care. Pain in pelvis 63007715 R10.2 65107 [id number] Ahsan Resendiz MD [facility] ([facility]) [address] [place] [address] [id number] 5 01/21/2025 15:29:29 01/22/2025 08:51:00 Attention deficit hyperactivity disorder 405828359 F90.9 Anxiety disorder F41.9 Health Concerns Section Related Observation LastModified by Organization Detai ls LastModified Time None Recorded Concern Status LastModified by Organization Details LastModified Time None Recorded Advance Directives Directive None Recorded Payers Insurance Date Sequence Insurance Name Policy Number Policy Reyes Covered Member ID Reyes Member ID Guarantor Name 01/20/2025 1 [facility] ([id number]) [id number] Geraldine Negro [id number] Geraldine Negro Notes Date Note Type Note Provider Name and Address Organization Details Recorded Time 5 text/html Rectal PainReported by PatientHPIFor quality, patient reportsrectal pain,itchy, andburning. For context, patient reportsoccurs with bowel movement. For location, patient reportsrectum. For severity, patient reportsmoderate. For duration, patient reports3 days. For onset/timing, patient reportsconstant. PREM PATINO [address] [place] [address], [phone], [facility], Cristin 11/25/2024 13:16:57 5 text/html ROS as noted in the [facility] walk-in Patient c/o urinary symptoms. No burning but pressure, urgency and frequency. She did a telehealth visit over the weekend and was put on Keflex but has not noticed a difference. Patient has also taken AZO for symptoms with no relief. ARNOLDO CHRISSY, [facility] [address] [place], [phone], [facility], LTomás. 12/23/2024 09:16:07 5 text/html ROS as noted in the [facility] walk in ptPt was seen on 12/23 for dysuria and is currently on macrobid. Her urine cx came back normal. She is still having lower abdominal pressure and frequency. Did not take the fluconazole prescribed at the 12/23 visit. States she has pelvic pressure. Used a sex toy recently. States she noticed a little white discharge in the genital area by the urethra. Denies swelling/inflammation to the vaginal area. JT GIBSON, [facility] [address] [place], [phone], [facility], Fatou. 12/26/2024 18:15:03 5 text/html Lower Urinary Tract Symptoms (LUTS)Reported by PatientHPIFor associated symptoms, patient reportsabdominal pain. For location, patient reportsbilateral. For quality, patient reportsachingandpressure . For severity, patient reportsnot changingandmild. For onset/timing, patient reportsspontaneous. She was seen last week & over the weekend for UTI. She is still having some pain in relation with that. KARISHMA ALCANTARA, [address], [phone], [facility], LDarrynC. 12/29/2024 13:49:57 5 text/html ADHDReported by PatientHPIFor hyperactivity, patient reportsfidgets/squirms (depending on the day). For medication side effects, patient reportsheadachesbut reportsno dizziness,no chest pain, andno shortness of breath. For appetite, patient reportsnormal appetite. For peer relationships, patient reportswell connected with peers. For tasking, patient reportsable to complete tasks. For medications, patient reportsprescription medications:. med F/U, Pt states her medications controll most of her symptoms, pt has started running and that seems to help with the anxiety. Ahsan Resendiz MD [address] [place] [address], [phone], [facility] L[facility]CTresa 01/21/2025 16:36:55 OBGyn Episode No OBEpisode recorded.
--- OUTSIDE RECORDS SUMMARY | 2025-01-25 21:31 | XMS_ITS | Clinical Summary ---
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 Active lisinopriL (PRINIVIL) 10 mg tablet Take 10 mg by mouth daily. Active HYDROcodone-acet aminophen (HYCET) 7.5-325 mg/15 mL SolutionIndicati ons:Post-op pain Take 15 mL by mouth every 6 hours as needed for Pain, Severe. Max Daily Amount: 60 mL 300 mL 03/22/2022 Active ondansetron (Zofran) 4 mg Tablet Take 1 Tablet (4 mg) by mouth every 6 hours as needed for Nausea/Vomi ting. 28 Tablet 03/23/2022 12:52 PM CANDY SEPARATOR ENROBING 03/22/2022 Active HYDROcodone-acet aminophen (HYCET) 7.5-325 mg/15 mL Solution Take 15 mL by mouth every 6 hours as needed for Pain,Severe . Max Daily Amount: 60 mL 300 mL 03/23/2022 12:52 PM CANDY SEPARATOR ENROBING 03/22/2022 Active Active Problems Problem Noted Date Diagnosed Date Hyponatremia 03/23/2022 Post-op pain 03/23/2022 Post-operative nausea and vomiting 03/23/2022 Generalized anxiety disorder 03/23/2022 Attention deficit disorder 03/23/2022 Benign hypertension 03/23/2022 Family History Medical History Relation Name Comments Hypertension Brother Other Father Diabetes Mother Relation Name Status Comments Brother Alive Father Mother Alive Social History Tobacco Use Types Packs/Day Years Used Date Smoking Tobacco: Never Smokeless Tobacco: Never Tobacco Cessation:Counseling Given: Not Answered Alcohol Use Standard Drinks/Week Comments Yes 0 (1 standard drink = 0.6 oz pur e alcohol) rare Comments No Sex and Gender Information Value Date Recorded Sex Assigned at Not on file Legal Sex Female 11:38 PM CANDY SEPARATOR ENROBING Gender Identity Not on file Sexual Orientation Not on file Last Filed Vital Signs Vital Sign Reading Time Taken Comments Blood Pressure 122/59 03/23/2022 11:52 AM CANDY SEPARATOR ENROBING Pulse 50 03/23/2022 11:52 AM CANDY SEPARATOR ENROBING Temperature 36.7 C (98 F) 03/23/2022 11:52 AM CANDY SEPARATOR ENROBING Respiratory Rate 16 03/23/2022 11:5 2 AM CANDY SEPARATOR ENROBING Oxygen Saturation 100% 03/23/2022 11: 52 AM CANDY SEPARATOR ENROBING Inhaled Oxygen Concentration - - Weight 71.2 kg (156 lb 14.4 oz) 03/22/2022 3:08 PM CANDY SEPARATOR ENROBING Height 157.5 cm (5' 2 ) 03/22/2022 3:08 PM CANDY SEPARATOR ENROBING Body Mass Index 28.7 03/22/2022 3:08 PM CANDY SEPARATOR ENROBING Plan of Treatment Health Maintenance Due Date Last Done Comments DTAP/TDAP/TD VACCINES (1 - Tdap) 2008 HEPATITIS B VACCINES (1 of 3 - 19+ 3-dose series) 05/24 HPV VACCINES (1 - 3-dose SCDM series) 2016 INFLUENZA VACCINE (#1) 2024 COVID-19 Vaccine (2 - season) 2024 Medical Devices Implanted Type Area Brake Drum Lathe Operator Device Identifier Shelf Expiration Date Model / Serial / Lot Seamguard Endogia 60 Blk [id number] - [id number] Implanted:Qt y: 1 on 03/22/2022 by Neil Parker MD at [facility] Biological N/A: [employer] [id number] 09/12/2024 12BSGTRI 60B / / [id number] Seamguard Endogia 60 Blk [id number] - [id number] Implanted:Qt y: 1 on 03/22/2022 by Neil Parker MD at [facility] Biological N/A: [employer] [id number] 09/12/2024 12BSGTRI 60B / / [id number] Seamguard Endogia 60 Prpl [id number] - [id number] Implanted:Qt y: 1 on 03/22/2022 by Neil Parker MD at [facility] Biological N/A: St[employer] [id number] 11/12/2024 12BSGTRI 60P / / [id number] Seamguard Endogia 60 Prpl [id number] - [id number] Implanted:Qt y: 1 on 03/22/2022 by Neil Parker MD at [facility] Biological N/A: St[employer] [id number] 11/12/2024 12BSGTRI 60P / / [id number] Insurance BCBS BLUE ACCESS/TRUE BLUE PPO RX [facility] [employer] [facility] [place] [employer] (INTERNAL) Susany Internal Plans Advance Directives For more information, please contact: [phone] * Full Code (Latest Code Status on File) Date Activated Date Inactivated Comments 03/22/2022 10:22 AM 03/23/2022 7:00 PM * Full Code Date Activated Date Inactivated Comments 03/22/2022 9:31 AM 03/22/2022 10:21 AM
--- OUTSIDE RECORDS SUMMARY | 2025-01-25 21:31 | XMS_ITS | Patient Health Record ---
Author Organization [facility] Address [address] [place] [address] Care Team Providers Care Inventory Control Manager Name Role Phone Fay, Monique Primary Care Provider [phone] FAYMONIQUE Unavailable Unavailable Allergies No Known Allergies Reason For Referral No Information Medications Medication SIG (Take, Route, Frequency, Duration) Notes Start Date End Date Status buPROPion HCl ER (SR) 150 MG Tablet Extended Release 12 Hour TAKE 1 TABLET BY MOUTH EVERY DAY IN THE MORNING; Duration: 30 Active Lisinopril 10 MG Tablet 1 tablet Orally Once a day; Duration: 90 days Active Estradiol 1 MG Tablet 1 tablet Orally On ce a day; Duration: 90 days Active Zoloft 50 MG Tablet 1 tablet Orally Once a day Active Climara 0.1 MG/24HR Patch Weekly 1 patch to skin Transdermal apply new patch q week; Duration: 30 day(s) Not-Taking hydroCHLOROthiazide 25 MG Tablet 1 tablet in the morning Orally Once a day Active Social History Tobacco Use: Social History Observation Description Date Details (start date - stop date) Never Smoker NA - NA Social History Depression Screening Social Info Question Answer Notes PHQ-9 Little interest or pleasure in doing thin gs Several days Feeling down, depressed, or hopeless Several day s Trouble falling or staying asleep, or sleeping t oo much Not at all Feeling tired or having little energy Not at all Poor appetite or overeating Several days Feeling bad about yourself, or that you are a failure, or have let yourself or your family down Several days Trouble concentrating on thi ngs, such as reading the newspaper or watching television Not at all Moving or speaking so slowly that other people could have noticed. Or the opposite ? being so fidgety or restless that you have been moving around a lot more than usual Several days Thoughts that you would be b zhane off , or of hurting yourself in some way Not at all Total Score 5 Interpretation Mild Depression Drugs/Alcohol: Social Info Question Answer Notes Alcohol Screen (Audit-C) Did you have a drink containing alcohol in the past year? Yes How often did you have a drink containing alcohol in the past year? Monthly or less (1 point) How many drinks did you have on a typical day when you were drinking in the past year? 1 or 2 drinks (0 point) How often did you have 6 or more drinks on one occasion in the past year? Never (0 point) Points 1 Interpretation Negative Drugs Have you used drugs other than those for medical reasons in the past 12 months? No Tobacco Use: Social Info Question Answer Notes xTobacco Use/Smoking Are you a nonsmoker Additional Details Category Social Info Options Details Drugs/Alcohol: Do you smoke marijuana? De nies Do you drink alcohol? No Section Notes: 09/08/2021 09/08/2021 09/08/2021 Problems Problem Type SNOMED Code ICD Code Onset Dates Problem Status W/U Status Risk Notes Problem Fatigue (71718031) Other fatigue (R53.83) Active confirmed Problem Anxiety (30975526) Anxiety (F41.9) Active confirmed Problem Obesity (896368138) Obesity (BMI 30-39.9) (E66.9) Active confirmed Problem Menopause (010644064) Menopause (Z78.0) Active confirmed Problem Diabetes mellitus screening (104668719) Diabetes mellitus screening (Z13.1) Active confirmed Problem Swelling (64836880) Swelling (R60.9) Active confirmed Problem Depression (144640734) Other depression (F32.89) Active confirmed Problem Morbid obesity (650475018) Morbid obesity (E66.01) Active confirmed Problem Lipid screening (170809714) Lipid screening (Z13.220) Active confirmed Problem Thyroid disorder screening (288006546) Thyroid disorder screen (Z13.29) Active confirmed Problem History of hysterectomy (260062237) History of hysterectomy (Z90.710) Active confirmed Problem Body mass index 35.00 to 39.99 (521914517104494 ) Body mass index [BMI] 38.0-38.9, adult (Z68.38) Active confirmed Problem Body mass index 35.00 to 39.99 (681385413507849 ) Body mass index [BMI] 39.0-39.9, adult (Z68.39) Active confirmed Problem Primary hypertension (70304332) Primary hypertension (I10) Active confirmed Plan Of Treatment No Information Insurance Providers Payer Name Payer Address Payer Phone Subscriber Number Group Number Insured Name Patient Relationship to Insured Coverage Start Date Coverage End Date [facility] [employer] [address] [place] [address] [id number] Geraldine Dove Self - patient is the insured Medical (General) History Medical History History ICD Code anxiety depression Surgical History Surgery Date(Month/Year) partial hysterectomy 2019 Hospitalization History Reason Date(Month/Year) childbirth hysterectomy 2019
--- OUTSIDE RECORDS SUMMARY | 2025-01-25 21:31 | XMS_ITS | Continuity of Care Document ---
Author Organization [facility] Conrado Main [facility], Cristin, [facility] ([facility]) Address [address] [place] [address] Care Team Providers Care Solar Energy Systems Engineer Name Role Phone MARIO ALCANTARA Primary Care Provider Unavailabl e Assessment No assessment recorded. Plan of Treatment Reminders Order Date Submit Date Provider Last Modified By Organization Details Last Modified Time Details Appointments ULTRASO UND 2024 10:15A M ULTRASOUND Not available Not available Not available Lab None recorde d. Referral None recorde d. Procedures None recorde d. Surgeries None recorde d. Imaging None recorde d. Medication Orders alprazo paez 0.25 mg tablet 2024 025 [email or web address] [facility], [address], [place], [address], 01/21/2025 16:34:42 Patient TargetsNo targets recorded. Patient InstructionsNo instructions recorded. Reason for Referral None Reported. Results Created Date Observation Date Name Description Value Unit Range Abnormal Flag Note LastModifiedBy Organization Detail LastModifiedTime 12/30/1912/29/2024 SURES WAB(R ) ADVAN JULIO VAGIN ITIS PLUS, TMA sureswab(R) adv bacterial vaginosis (bv), tma NEGATI VE negati ve normal Not Available [facility] [address] [place], [address], 12/29/2024 09:02:31 12/30/1912/29/2024 SURES WAB(R ) ADVAN JULIO VAGIN ITIS PLUS, TMA sugar species TNP TEST NOT PERFO RMED After sever al attem pts, we canno t obtai n a valid resul t. Pleas e submi t a new sampl e for testi ng. Not Available [address], [address], 12/29/2024 09:02:31 12/30/19 25 12/29/2024 SURES WAB(R ) ADVAN JULIO VAGIN ITIS PLUS, TMA trichomonas vaginalis (TV), tma TNP TEST NOT PERFO RMED After sever al attem pts, we canno t obtai n a valid resul t. Pleas e submi t a new sampl e for testi ng. Not Available [facility] [address], [address], 12/29/2024 09:02:31 12/30/1912/29/2024 SURES WAB(R ) ADVAN JULIO VAGIN ITIS PLUS, TMA chlamydia trachomatis RNA, tma, urogenital NOT DETECT ED not detect ed normal Not Available [facility] [address], [address], 12/29/2024 09:02:31 12/30/1912/29/2024 SURES WAB(R ) ADVAN JULIO VAGIN ITIS PLUS, TMA neisseria gonorrhoeae RNA, tma, urogenital NOT DETECT ED not detect ed normal For addit ional infor kim haynes refer to https ://ed ucati on.qu sia [employer]. CollegeZen/f aq/FA Q154 (This link is being provi ded for infor davian grimaldo/ tonya morales ses only. ) Not Available [address], [address], 12/29/2024 09:02:31 12/30/19 25 12/29/2024 CULTU RE, URINE , ROUTI NE culture, urine, routine SEE NOTE CULTU RE, URINE , ROUTI NE Micro Numbe r: [id number] Test Statu s: Final Speci men [...] on your area of inter est: 866-M YQUES T ([phone]) NO COLLE CTION DATE RECEI GEORGI. WE HAVE USED THE DATE THE SPECI MEN WAS RECEI GEORGI BY THIS LABOR ATORY THE COLLE CTION DATE. IF THIS IS INCOR RECT, PLEAS E CONTA CT CLIEN T SERVI SERGIO. PHONE NUMBE R: [phone] Not Available [facility] [place] [address] [place], [address], 12/29/2024 09:02:31 12/24/1912/24/2024 CULTU RE, URINE , ROUTI NE culture, urine, routine SEE NOTE CULTU RE, URINE , ROUTI NE Micro Numbe r: [id number] Test Statu s: Final Speci men Sourc e: Urine , clean catch Speci men Quali ty: Adequ ate Resul t: No Growt h Not Available [facility] [address] [place], [address], 12/25/2024 00:56:54 12/24/1912/23/2024 urina lysis , dipst ick Leukocytes Large Not Available [facility]) [address] [place] [address], [address], 12/23/2024 08:52:23 12/24/19 25 12/23/2024 urina lysis , dipst ick Nitrite positi ve Not Available [facility] ([facility]) [address] [place], [address], 12/23/2024 08:52:23 12/24/1912/23/2024 urina lysis , dipst ick Urobilinogen 2 Not Available [facility] ([facility]) [address] [place], [address], 12/23/2024 08:52:23 12/24/19 25 12/23/2024 urina lysis , dipst ick Protein 100 Not Available [facility] ([facility]) [address] [place], [address], 12/23/2024 08:52:23 12/24/19 25 12/23/2024 urina lysis , dipst ick pH 5.0 Not Available [facility] ([facility]) [address] [place], [address], 12/23/2024 08:52:23 12/24/1912/23/2024 urina lysis , dipst ick Blood Non-He molyze d: Trace Not Available [facility] ([facility]) [address] [place], [address], 12/23/2024 08:52:23 12/24/19 25 12/23/2024 urina lysis , dipst ick Specific Stratford 1.015 Not Available [facility] ( [facility]) [address] [place], [address], 12/23/2024 08:52:23 12/24/19 25 12/23/2024 urina lysis , dipst ick Ketone Small Not Available [facility] ([facility]) [address] [place], [address], 12/23/2024 08:52:23 12/24/19 25 12/23/2024 urina lysis , dipst ick Bilirubin Small Not Available [facility] ([facility]) [address] [place], [address], 12/23/2024 08:52:23 12/24/1912/23/2024 urina lysis , dipst ick Glucose 100 Not Available [facility] ([facility]) [address] [place], [address], 12/23/2024 08:52:23 12/27/19 25 12/26/2024 urina lysis , dipst ick Leukocytes Negati ve Not Available [facility] ([facility]) [address] [place], [address], 12/26/2024 17:44:50 12/27/19 25 12/26/2024 urina lysis , dipst ick Nitrite negati ve Not Available [facility] ([facility]) [address] [place], [address], 12/26/2024 17:44:50 12/27/19 25 12/26/2024 urina lysis , dipst ick Urobilinogen .2 Not Available [facility] ([facility]) [address] [place], [address], 12/26/2024 17:44:50 12/27/19 25 12/26/2024 urina lysis , dipst ick Protein Negati ve Not Available [facility] ([facility]) [address] [place], [address], 12/26/2024 17:44:50 12/27/19 25 12/26/2024 urina lysis , dipst ick pH 8.0 Not Available [facility] ([facility]) [address] [place], [address], 12/26/2024 17:44:50 12/27/19 25 12/26/2024 urina lysis , dipst ick Blood Negati ve Not Available [facility] ([facility]) [address] [place], [address], 12/26/2024 17:44:50 12/27/19 25 12/26/2024 urina lysis , dipst ick Specific [place] 1.020 Not Available [facility] ( [facility]) [address] [place], [address], 12/26/2024 17:44:50 12/27/19 25 12/26/2024 urina lysis , dipst ick Ketone Negati ve Not Available [facility] ([facility]) [address] [place], [address], 12/26/2024 17:44:50 12/27/19 25 12/26/2024 urina lysis , dipst ick Bilirubin Negati ve Not Available [facility] ([facility]) [address] [place], [address], 12/26/2024 17:44:50 12/27/19 25 12/26/2024 urina lysis , dipst ick Glucose Negati ve Not Available [facility] ([facility]) [address] [place], [address], 12/26/2024 17:44:50 12/27/19 25 12/26/2024 urina lysis , dipst ick Appearance Clear Not Available [facility] ( [facility]) [address] [place], [address], 12/26/2024 17:44:50 12/27/19 25 12/26/2024 urina lysis , dipst ick Color Yellow Not Available [facility] ([facility]) [address] [place], [address], 12/26/2024 17:44:50 Result Notes None recorded. Problems Name Problem SNOMED Code Status Onset Date Resolution Date Notes Provider Name and Address Organization Details Recorded Time Pre-eclampsia 887432727 Active 2022 UMA eaton [facility] 4 16:05:30 Anxiety disorder 086729175 Active 2022 UMA ALLEN uma [facility] 4 16:05:00 Attention deficit hyperactivity disorder 815497035 Active 2022 UMADICK eaton [facility] 4 16:05:06 Depressive disorder 14100214 Active 2022 UMA ALLEN uma [facility] 4 16:05:17 History of bariatric surgical procedure 000726966 Active 2022 UMA eaton [facility] 4 16:05:22 Adult attention deficit hyperactivity disorder 059872081 Active 2022 UMA ALEJANDRO uma [facility] 4 16:04:54 Thyroid stimulating hormone level below reference range 532756357 Active 2024 Ahsan Resendiz MD [address] [place] [address], [address] [place] [address], L.L.C. 5 11:59:05 Problem Notes None recorded. Procedures Surgical History Date Name Laterality Status Provider Name and Address Organization Details Recorded Time laparoscopic sleeve gastrectomy completed [facility]RE BANKS [facility] 02/10/2024 11:15:57 Hysterectomy completed UMA ALEJANDRO [facility] 03/13/2023 10:32:05 Imaging Results None recorded. Procedure Notes None recorded. Medical Equipment None Reported. Allergies No known drug allergies Medications Name Sig Start Date Stop Date Status Note LastModified by Organization Details LastModified Time testoster one 5 mg/gm hrt heavy (mh) APPLY 4 clicks (ONE GRAM) TOPICALL Y [...] two times daily, as needed 12/20 completed 17659; Recorded 07/11/19 23 8:46AM by Uma Allen [...] completed Not Available Not Available Not Available [facility] ODT 75 mg disintegr ating tablet TAKE [...] Not Available Vitals Date Recorded Body height Body mass index (BMI) Body weight Oxygen saturation Oxygen saturation in Arterial blood by Pulse oximetry Heart rate Respiratory rate Body temperature Systolic And Diastolic Provider Name and Address Organization Details Last Updated DateTime 158.75 cm 21.8 kg/m2 29882.0 8 g 98 % 98 % 84 /min 18 /min 98.1 [degF] 118/68 mm[Hg] GADIEL SPRING [facility] 16:18:12 Social History Question Answer Notes LastModified by Organizat ion Details LastModified Time Tobacco Smoking Status [facility] 03/13/2023 10:31:40 What Was The Date Of Your Most Recent Tobacco Screening? 12/26/2024 [email or web address] Information not available 12/26/2024 What Is Your Relationship Status? [email or web address] Information not available 03/13/2023 Sex: Unknown Functional Status Question Answer Note LastModified by Organizat ion Details LastModified Time Do you use any illicit or recreational drugs? No Information not available 03/13/2023 Do you or have you ever used any other forms of tobacco or nicotine? No [email or web address] Information not available 12/23/2024 What is your level of alcohol consumption? None Information not available 03/13/2023 Are you currently employed? Yes [email or web address] Information not available 03/13/2023 Are you able to walk independently without assistance or assistive devices? [email or web address] Information not available 04/13/2024 Are you able to care for yourself independently? Yes [email or web address] Information not available 03/13/2023 Do you or have you ever used any nicotine-free cigarettes, vape, or chewing tobacco? No Information not available 12/23/2024 Mental Status None recorded. Family History Relationship Description Onset Age of this Age Resolved Age Notes LastModified by Organization Details LastModified Time Mother Type 2 diabetes mellitus [email or web address] Not available 03/13 10:27:03 Mother Malignant neoplasm of breast dx age 55 Not available 03/13/2023 10:31:18 Father Essential hypertension Not available 10:30:55 Medical History Condition Response [...] 100 mcg/0.5mL dose or 50 mcg/0.25mL dose completed PREM PATINO [address] [place] [address], [address], [facility] 12/20/2022 12:39:21 Past Encounters Encounter ID Performer Location Encounter Start Date Encounter Closed Date Diagnosis/Indication Diagnosis SNOMED-CT Code Diagnosis ICD10 Code Diagnosis IMO Codes Diagnosis Note [id number] PREM JESUS [facility] ([facility]) [address] [place] [address] 12/23/2024 08:47:01 12/23/2024 09:21:49 Dysuria 69701248 R30.0 35924 Acute urin nimesh tract infection 247397014 N39.0 354399 Discussed to take antibiotic as prescribed until [...] concernsPa tient verbalized understand ing of plan. [id number] JT GIBSON [facility] ([facility]) [address] [place] [phone] 12/26/2024 17:42:46 12/28/2024 11:39:24 Dysuria 09854120 R30.0 41035 Pt will take fluconazol e that was prescribed at her last visit.May stop the macrobid since urine dip today is normal and urine cx was negative.S elf vaginal swab collected. Will call pt with results. [id number] MARIO ALCANTARA [facility] ([facility]) [address] [place] [phone] 12/29/2024 13:09:40 12/29/2024 13:53:29 Pelvic floor dysfunction 561759219 M62.89 9634035 Anxiety disorder F41.9 Feels like anxiety is worsening. Struggling with her mom's health at this time. She needs a lot of care. Pain in pelvis 19850982 R10.2 59170 [id number] Ahsan Resendiz MD [facility] ([facility]) [address] [place] [phone] 01/21/2025 15:29:29 01/22/2025 08:51:00 Attention deficit hyperactivity disorder 258873851 F90.9 Anxiety disorder 06 F41.9 Health Concerns Section Related Observation LastModified by Organization Detai ls LastModified Time None Recorded Concern Status LastModified by Organization Details LastModified Time None Recorded Payers Encounter Date Sequence Insurance Name Policy Number Policy Reyes Covered Member ID Reyes Member ID Guarantor Name 01/21/2025 1 [place] [id number] Geraldine Negro [id number] Geraldine Negro Notes Date Note Type Note Provider Name and Address Organization Details Recorded Time 5 text/html ADHDReported by PatientHPIFor hyperactivity, patient [...] help with the anxiety. Ahsan Resendiz MD [address] [place] [address], [address], [facility] 01/21/2025 16:36:55 OBGyn Episode No OBEpisode recorded.
--- NOTE | 2025-01-25 22:16 | USR_ITS ---
PROCEDURE INFORMATION: Exam: US Duplex Right upper Extremity Veins, Limited Exam date and time: 01/25/2025 10:54 PM Age: 34 years old Clinical indication: Injury or trauma; Other: Unkown; Other: Forearm bruise; Additional info: Atraumatic rue pain/bruising TECHNIQUE: Imaging protocol: Real-time duplex ultrasound of the right extremity with 2-D gallegos scale, color Doppler flow and spectral waveform analysis including responses to compression and other maneuvers (when performed) with image documentation. Limited exam was focused on the right lower extremity veins. COMPARISON: No relevant prior studies available. FINDINGS: Right deep veins: Unremarkable. The common femoral, femoral, proximal profunda femoral and popliteal veins are patent without thrombus. Normal Doppler waveforms. Normal compressibility and/or augmentation response. Superficial veins: Greater saphenous vein at the saphenofemoral junction is patent without thrombus. Soft tissues: Within the area of bruise demonstrated there is a small hypoechoic hematoma present measuring a proximally 6 mm. US/[place] [id number] IMPRESSION: No findings present to suggest right upper extremity DVT Findings of small hypoechoic nodular area in the area of bruise may represent small subcutaneous hematoma.
--- NOTE | 2025-01-25 22:40 | W.ED.EXTPRO ---
HPI - Extremity Problem General: Chief complaint: Extremity Problem,Nontraumatic Stated complaint: believes blood clot in right arm Time Seen by Provider: 01/25/25 21:31 Source: patient Mode of arrival: ambulatory Limitations: no limitations History of Present Illness: Patient is a 34-year-old female who presents emergency department complaining of right upper extremity pain onset today. States that there is an area to her right forearm that is very tender and has started to bruise, and she looked up her symptoms and became concerned that she has a blood clot. Reports that she is on progesterone, but otherwise denies any trauma, history of clots, coagulopathy, or history of cancer. She is not short of breath. States that she intermittently will have shooting pains down her arm, but otherwise has good peripheral strength. No other symptoms at this time. Vitals are stable. States that she took an aspirin this morning for her pain. MD Complaint: extremity pain Onset (ago): hour(s) Pain Consistency: constant Location: right and upper extremity Radiation: distal Associated symptoms: Deny chest pain, fever(s) or rash Related Data Home Medications ?Medication ?Instructions ?Recorded ?Confirmed hydrochlorothiazide 25 mg tablet 25 mg PO QAM 12/20/21 11/18/24 lisinopril 10 mg tablet 10 mg PO QAM 12/20/21 11/18/24 dextroamphetamine-amphetamine 7.5 12.5 mg PO BID 07/14/24 11/18/24 mg tablet alprazolam 0.25 mg tablet (Xanax) 0.25 mg PO DAILY PRN 11/18/24 11/18/24 bisacodyl 5 mg tablet,delayed 5 mg PO DAILY 11/18/24 11/18/24 release (Dulcolax (bisacodyl)) polyethylene glycol 3350 17 gram 17 g PO DAILY 11/18/24 11/18/24 oral powder packet (Miralax) Previous Rx's ?Medication ?Instructions ?Recorded hydrocortisone 2.5 % topical cream 1 applic LA Q8H PRN itching 3 11/14/24 with perineal applicator weeks #30 grams (Anusol-HC) docusate sodium 100 mg capsule 100 mg PO BID #60 caps 11/18/24 hydrocortisone 2.5 % topical cream 1 applic LA BID hemorrhoids 7 days 11/18/24 with perineal applicator #30 grams (Anusol-HC) lidocaine HCl 2 % mucosal solution 1 applic mucous membrane BID PRN 11/18/24 (Lidocaine Viscous) pain #100 mL oxycodone 5 mg capsule 5 mg PO Q8H PRN pain 2 days #7 caps 11/18/24 polyethylene glycol 3350 17 17 g PO BID #238 grams 11/18/24 gram/dose oral powder (Miralax) Allergies Allergy/AdvReac Type Severity Reaction Status Date / Time No Known Allergies Allergy Verified 01/25/25 21:31 Review of Systems General: Reports: 10 or more systems reviewed and unremarkable except in HPI and below Const: Denies: fever(s) or chills Card: Denies: chest pain Resp: Denies: dyspnea or productive cough GI: Denies: abdominal pain, nausea, vomiting or diarrhea : Denies: flank pain Musc: Reports: extremity pain (RUE); Denies: neck pain, back pain, extremity swelling, joint pain, joint swelling, joint redness, joint warmth, limited range of motion or muscle weakness Skin/Breast: Denies: rash Neuro: Denies: headache(s), numbness in extremities or weakness in extremities PFSH ED PFSH: Medical History GERD (gastroesophageal reflux disease) Anxiety Moderate major depression ADHD Anxiety and depression Hypertension No pertinent past medical history neghx:dm,thyroid,dvt/pe PCP: [facility] H/O gastric sleeve (~2022) Performed by Dr. Parker in [place] H/O oral surgery dental work at age 3 H/O: hysterectomy (~11/2018) MUSA performed by Dr. Jackson at [facility] on 12/10/2018. Due to fibroids. Family History Mother Hypertension Diabetes Breast cancer, Onset Age: 50 Father Hypertension Hyperlipidemia Grandmother Diabetes maternal Family/Other Ovarian cancer maternal aunt Social History Smoking and tobacco/nicotine status: never used tobacco/nicotine Alcohol intake: never Substance/Drug Use: never Physical Exam Const: COMMON NORMALS: no acute distress, patient oriented x3, no limitations, healthy appearing, alert and well nourished HENMT: COMMON NORMALS: normocephalic and atraumatic HEAD & SCALP: normocephalic and atraumatic Neck/C-Spine: COMMON NORMALS: full ROM, supple and no meningeal signs Resp: COMMON NORMALS: normal respiratory effort, No use of accessory muscles and clear to auscultation bilaterally AUSCULTATION: clear to auscultation bilaterally Cardio: COMMON NORMALS: regular rate and regular rhythm RATE: regular rate RHYTHM: regular rhythm Extremity: COMMON NORMALS: full ROM, capillary refill normal, no joint enlargement and no clubbing, cyanosis or edema NARRATIVE EXTREMITY EXAM: Small area of bruising to right forearm, tender to palpation. Radial pulse palpable, distal neurovascular exam otherwise normal. Normal elbow examination. No pallor, paralysis, or coolness to the right upper extremity. Neuro: COMMON NORMALS: patient oriented x3, moves all extremities, no focal motor deficits and no sensory deficits noted SENSORIUM/ORIENTATION: Yes alert MENINGEAL SIGNS: Yes no meningeal signs Skin: COMMON NORMALS: no rashes or lesions noted GENERAL SKIN EXAM: no rashes or lesions noted Course Vital Signs: Vital signs: Vital Signs Temperature 98.3 F 01/25/25 21:27 Pulse Rate 66 01/25/25 23:31 Respiratory Rate 14 01/25/25 21:27 Blood Pressure 134/92 01/25/25 23:31 Pulse Oximetry 96 01/25/25 23:31 MDM - Extremity (Nontraumatic) Medical Decision Making Patient presented with concerns that she was having blood clot in her right arm, no trauma, previous blood clot history, or any other predisposing conditions other than taking progesterone. Area of bruising to the forearms that is tender to the touch, but otherwise radial pulse palpable and neurovascular status appearing intact with no signs of acute arterial occlusion. Basic blood work was normal. Ultrasound ruling out DVT. Suspect this is just hematoma to the right forearm, she will follow-up primary care if she continues to have symptoms and return with any new or worsening. Lab Data 01/25/25 22:59 01/25/25 22:59 Laboratory Results WBC 4.38 10^3/uL (3.29-11.43) 01/25/25 22:59 RBC 3.82 10^6/uL (3.85-5.65) L 01/25/25 22:59 Hgb 11.90 g/dL (11.27-16.99) 01/25/25 22:59 Hct 35.2 % (36-47) L 01/25/25 22:59 MCV 92.1 fl (85-98) 01/25/25 22:59 MCH 31.2 pg (27-33) 01/25/25 22: MCHC 33.8 g/dL (30-55) 01/25/25 22:59 RDW 12.7 % (12.1-15.1) 01/25/25: Plt Count 158 10^3/cmm (157-399) 01/25/25: MPV 11.2 fL (7.4-10.4) H 01/25/25 22:59 Neut % (Auto) 49.0 % 01/25/25:59 Lymph % (Auto) 40.0 % 01/25/25:59 [place] % (Auto) 8.7 % 01/25/25:59 Eos % (Auto) 1.4 % 01/25/25:59 Baso % (Auto) 0.7 % 01/25/25: Neut # (Auto) 2.15 10^3/uL (1.8-7.7) 01/25/25: Lymph # (Auto) 1.8 10^3/uL (0.8-4.8) 01/25/25:59 [place] # (Auto) 0.4 10^3/uL (0.2-0.9) 01/25/25 22:59 Eos # (Auto) 0.1 10^3/uL (0.0-0.8) 01/25/25: Baso # (Auto) 0.0 10^3/uL (0.0-0.1) 01/25/25:59 Nucleated RBC % (auto) 0 % 01/25/25: Nucleated RBCs # 0.0 /100WBC 01/25/25 22:59 Sodium 138 mmol/L (136-145) 01/25/25 22:59 Potassium 3.7 mmol/L (3.5-5.1) 01/25/25 22:59 Chloride 105 mmol/L (98-107) 01/25/25 22:59 Carbon Dioxide 22 mmol/L (22-29) 01/25/25 22:59 Anion Gap 14.7 (5-19) 01/25/25 22:59 BUN 9 mg/dL (6-20) 01/25/25 22:59 Creatinine 0.5 mg/dL (0.5-0.9) 01/25/25 22:59 GFR Calculation 140.4 mL/min (90-130) H 01/25/25 22:59 Glucose 95 mg/dL (65-115) 01/25/25 22:59 Calculated Osmolality 284 mOsm/kg (285-295) L 01/25/25 22:59 Calcium 8.6 mg/dL (8.5-10.5) 01/25/25 22:59 All radiology interpretation(s) finalized by discharge Discharge Plan Discharge Patient Disposition: Home Clinical Impression: Hematoma of forearm Condition: Stable Prescriptions: No Action hydrochlorothiazide 25 mg tablet 25 mg PO QAM lisinopril 10 mg tablet 10 mg PO QAM lidocaine (PF) 10 mg/mL (1 %) solution 10 mg SUBCUT ONCE Qty: 1 0RF polyethylene glycol 3350 [Miralax] 17 gram powder in packet 17 g PO DAILY bisacodyl [Dulcolax (bisacodyl)] 5 mg tablet,delayed release (DR/EC) 5 mg PO DAILY alprazolam [Xanax] 0.25 mg tablet 0.25 mg PO DAILY PRN hydrocortisone [Anusol-HC] 2.5 % cream with perineal applicator 1 applic LA BID 7 Days Qty: 30 0RF Rx Instructions: may repeat in 10 days docusate sodium 100 mg capsule 100 mg PO BID Qty: 60 0RF polyethylene glycol 3350 [Miralax] 17 gram/dose powder 17 g PO BID Qty: 238 0RF oxycodone 5 mg capsule 5 mg PO Q8H PRN (Reason: pain) 2 Days Qty: 7 0RF lidocaine HCl [Lidocaine Viscous] 2 % solution 1 applic mucous membrane BID PRN (Reason: pain) Qty: 100 0RF hydrocortisone [Anusol-HC] 2.5 % cream with perineal applicator 1 applic LA Q8H PRN (Reason: itching) 21 Days Qty: 30 0RF dextroamphetamine-amphetamine 7.5 mg tablet 12.5 mg PO BID Discharge Orders: Discharge ED (Routine); Ordered 01/26/25 Ordered By: Filiberto Hurtado Referrals: Ahsan Resendiz MD [Primary Care Provider, [facility]] Patient Instructions: Patient Portal & Smita Instructions Activity Restrictions/Additional Instructions: Forearm Hematoma Discharge You have been diagnosed with a hematoma (a collection of blood under the skin) in your right forearm. Your tests showed no blood clot, and your blood work was normal. You are being discharged in stable condition. What to do at home: - Rest your arm: Avoid heavy lifting or strenuous activity for the next few days. - Apply ice: Place an ice pack (wrapped in a cloth) on the area for 15?20 minutes every 2?3 hours for the first 48 hours to help reduce swelling and pain. - Compression: If advised, use a gentle elastic bandage to help control swelling. Do not wrap too tightly. - Elevate your arm: Keep your forearm raised above heart level as much as possible, especially when sitting or lying down. - Pain control: You may use acetaminophen (Tylenol) for pain. Avoid aspirin or NSAIDs unless directed, as these can increase bleeding risk. What to watch for: - Call your doctor or return to the emergency department if you notice: - Increasing pain, swelling, or firmness in the forearm - Numbness, tingling, weakness, or trouble moving your fingers or hand - Skin color changes (pale, blue, or cold) - Bleeding from the area - Signs of infection (redness, warmth, pus, fever) These symptoms could mean the hematoma is getting worse or affecting blood flow or nerves and need prompt evaluation. Activity and follow-up: - You may return to normal daily activities as comfort allows, but avoid activities that put strain on your forearm until swelling and pain have resolved. - Most hematomas heal within 1?2 weeks. If symptoms persist or worsen, schedule a follow-up appointment. Questions or concerns: If you have any questions about your recovery, please contact your healthcare provider. Take care and follow these instructions to help your arm heal safely. Print Language: Citizen Of [place] Coding Level of Care Code ED Government Service Executive for Amy Velasquez
[2025-01-25 23:10] LABS: Hematocrit 35.2 % (36-47); Hemoglobin 11.90 g/dL (11.27-16.99); Mean Corpuscular HGB Conc 33.8 g/dL (30-55); Mean Corpuscular Hemoglobin 31.2 pg (27-33); Mean Corpuscular Volume 92.1 fl (85-98); Nucleated Red Blood Cells % 0 %; Platelet Count 158 10^3/cmm (157-399); Red Blood Count 3.82 10^6/uL (3.85-5.65); White Blood Count 4.38 10^3/uL (3.29-11.43)
[2025-01-25 23:31] VITALS: BP 134/92; PULSE 66; O2SAT 96
[2025-01-25 23:32] LABS: Anion Gap 14.7 (5-19); Blood Urea Nitrogen 9 mg/dL (6-20); Calcium 8.6 mg/dL (8.5-10.5); Carbon Dioxide 22 mmol/L (22-29); Chloride 105 mmol/L (98-107); Creatinine Clr Calc Pharmacy 129.4006; Glucose 95 mg/dL (65-115); Osmolality Calculated 284 mOsm/kg (285-295); Potassium 3.7 mmol/L (3.5-5.1); Sodium 138 mmol/L (136-145)
[2025-01-26 00:35] VITALS: BP 126/86; PULSE 66; O2SAT 98
== END 2025-01-26 00:20 | disposition home or self-care (01) ==
PROVIDERS: Emergency Provider Physician Assistant; PCP Family Medicine
DX: S50.11XA Contusion of right forearm, initial encounter (principal); I10 Essential (primary) hypertension; X58.XXXA Exposure to other specified factors, initial encounter
CPT/HCPCS: 36415; 80048; 85025; 93971; 99284